=== PATIENT | female | born 1955 | race Caucasian/White ===

== ENCOUNTER → 2016-10-31 | Outpatient (CLI) | payer BC | LOC: WI 09:53 | PROVIDERS: ATTEND Specialist | DX: C50.312 Malignant neoplasm of lower-inner quadrant of left female breast (principal) | CPT/HCPCS: G0204-52 ==

== ENCOUNTER → 2017-05-04 | Outpatient (CLI) | payer BC | LOC: WI 09:15 | PROVIDERS: ATTEND Internal Medicine | DX: C50.312 Malignant neoplasm of lower-inner quadrant of left female breast (principal) | CPT/HCPCS: G0279; G0204; 77062; 77066 ==

== ENCOUNTER → 2017-07-20 | Outpatient (CLI) | payer BC ==
--- NOTE | 2017-07-20 12:49 | RADIOLOGY REPORT (SQ) ---
EXAM DESCRIPTION: TIBIA FIBULA LEFT COMPLETED DATE/TIME: 07/20/2017 11:16 am REASON FOR STUDY: PAIN LEFT LOWER LEG M25.562 PAIN IN LEFT KNEE M79.662 PAIN IN LEFT LOWER LEG COMPARISON: None. NUMBER OF VIEWS: Two views. TECHNIQUE: Two radiographic images acquired of the left tibia and fibula to include the knee and ank le in at least one projection. LIMITATIONS: None. FINDINGS: MINERALIZATION: Normal. BONES: No acute fracture or dislocation. No worrisome bone lesions. Note: The proximal tibia and fi bula are included in the knee series. SOFT TISSUES: No obvious swelling or foreign body. OTHER: No other significant finding. IMPRESSION: NEGATIVE STUDY OF THE LEFT TIBIA AND FIBULA. NO RADIOGRAPHIC EVIDENCE OF ACUTE INJURY. TECHNICAL DOCUMENTATION: JOB ID: [id number] [employer]- All Rights Reserved
--- NOTE | 2017-07-20 12:50 | RADIOLOGY REPORT (SQ) ---
EXAM DESCRIPTION: KNEE LEFT 4 VIEW COMPLETED DATE/TIME: 07/20/2017 11:16 am REASON FOR STUDY: PAIN IN LEFT KNEE M25.562 PAIN IN LEFT KNEE M79.662 PAIN IN LEFT LOWER LEG COMPARISON: None. NUMBER OF VIEWS: Four views. TECHNIQUE: AP, lateral, and both oblique radiographic images acquired of the left knee. LIMITATIONS: None. FINDINGS: MINERALIZATION: Normal. BONES: No acute fracture or dislocation. No worrisome bone lesions. JOINT: No effusion. SOFT TISSUES: No soft tissue swelling. No radio-opaque foreign body. OTHER: No other significant finding. IMPRESSION: NEGATIVE STUDY OF THE LEFT KNEE. NO RADIOGRAPHIC EVIDENCE OF ACUTE INJURY. TECHNICAL DOCUMENTATION: JOB ID: [id number] [employer]- All Rights Reserved
== END ==
LOC: RAD 10:32
PROVIDERS: ATTEND Family Medicine
DX: M25.562 Pain in left knee (principal); M79.662 Pain in left lower leg

== ENCOUNTER → 2017-11-02 | Outpatient (CLI) | payer BC ==
--- NOTE | 2017-11-02 15:27 | WOMENS IMAGING REPORT ---
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 Additional right breast and left breast compression magnification views. LIMITATIONS: None. FINDINGS: RIGHT BREAST MASSES: No suspicious masses. Oil cysts are present in the medial right breast. CALCIFICATIONS: There are benign dystrophic calcifications in areas of fat necrosis. ARCHITECTURAL DISTORTION: None. DEVELOPING DENSITY: None. ASYMMETRY: None noted. OTHER: No other significant findings. LEFT BREAST MASSES: Multiple oil cysts are present in the left breast. CALCIFICATIONS: There are benign dystrophic calcifications in areas of fat necrosis. ARCHITECTURAL DISTORTION: None. DEVELOPING DENSITY: None. ASYMMETRY: None noted. OTHER: No other significant finding. Read with the assistance of CAD: .[facility] - R2 Cenova Version 1.3 .[facility] - R2 Cenova Version 1.3 .[facility] Imaging - R2 Cenova Version 2.4 .[facility] [place] R2 Cenova Version 2.4 .[facility] - R2 [employer] Inspector Version 9.2 IMPRESSION: No mammographic evidence for malignancy bilaterally BREAST DENSITY: a. The breasts are almost entirely fatty. BIRAD: 2 Benign findings. RECOMMENDATION: RECOMMENDED FOLLOW UP: Please continue yearly bilateral screening mammography/tomosy nthesis in October 2018 SPECIFIC INTERVENTION/IMAGING/CONSULTATION RECOMMENDED:No additional intervention/ imaging/consultati on needed at this time. COMMUNICATION:Patient notified by letter COMMENT: The patient has been notified of the results by letter per SA requirements. Additional no tification policies are in place for contacting patient with suspicious or incomplete findings. Quality ID #[id number]: The [employer] recommends an annual screening mammogram for women aged 40 years or over. This facility utilizes a reminder system to ensure that all patients receive reminder letters, and/or direct phone calls for appointments. This includes reminders for routine scr eening mammograms, diagnostic mammograms, or other Breast Imaging Interventions when appropriate. Th is patient will be placed in the appropriate reminder system. The [employer] (ACR) has developed recommendations for screening MRI of the breast s in certain patient populations, to be used in conjunction with mammography. Breast MRI surveillanc e may be appropriate for women with more than 20% lifetime risk of developing breast cancer as deter mined by genetic testing, significant family history of the disease, or history of mantle radiation f or Hodgkins Disease. ACR Practice Guidelines 2008. DBT Technology DBT is a type of tomographic mammography. With conventional mammography, overlapping breast tissue ma y make lesions difficult to detect, even with good compression. DBT uses an x-ray tube that rotates a round the breast, taking images at different angles. These images are then combined to create thin sl ices of the breast that the radiologist can view as a 3D reconstruction. The [employer] unit can perform full-field digital mammograms (2D imaging); or DBT (3D imaging); or both, in a combination mode that quickly performs both the mammogram and the tomosynthesis scan while the breast is still compressed. PQRS 6045F: Fluoroscopic imaging is not utilized for breast tomosynthesis. TECHNICAL DOCUMENTATION: FINDING NUMBER: (1) ASSESSMENT: (1) JOB ID: [id number] [employer]- All Rights Reserved Reading location - IP/workstation name: [email or web address]
== END ==
LOC: WI 08:52
PROVIDERS: ATTEND Physician Assistant
DX: C50.312 Malignant neoplasm of lower-inner quadrant of left female breast (principal)
CPT/HCPCS: 77066; G0279; 77062

== ENCOUNTER 2018-01-15 08:49 | Emergency (ER) | payer BC ==
[2018-01-15] MEDS ORDERED: LIDOCAINE 1% INJ-PF (10 MG/ML) 30 ML SDV INJ ONE (09:32)
[2018-01-15] MEDS ORDERED: DIPH/PERTUSS(ACELL)/TETANUS VAC/PF 0.5 ML SYR (>=10YO) IM ONE (09:32)
--- NOTE | 2018-01-15 09:32 | ER Document Report ---
ED Medical Screen (RME) - General Chief Complaint: Thumb Injury Stated Complaint: FINGER INJURY Time Seen by Provider: 01/15/18 09:26 Mode of Arrival: Ambulatory Information source: Patient Notes: 62-year-old female presents with laceration left hand thumb with a knife tetanus is not up-to-date I have greeted and performed a rapid initial assessment of this patient. A comprehensive ED assessment and evaluation of the patient, analysis of test results and completion of the medical decision making process will be conducted by additional ED providers. PHYSICAL EXAMINATION: GENERAL: Well-appearing, well-nourished and in no acute distress. HEAD: Atraumatic, normocephalic. EYES: Pupils equal round extraocular movements intact, conjunctiva are normal. ENT: Nares patent NECK: Normal range of motion LUNGS: No respiratory distress Musculoskeletal: Normal range of motion NEUROLOGICAL: Normal speech, normal gait. PSYCH: Normal mood, normal affect. SKIN: 3 cm laceration of the pad of the left hand thumb, there is venous oozing noted TRAVEL OUTSIDE OF THE [place] IN LAST 30 DAYS: No - Related Data Allergies/Adverse Reactions: aspirin Allergy (Verified 01/15/18 08:54) Penicillins Allergy (Verified 01/15/18 08:54) Past Medical History Renal/ Medical History: Denies: Hx Peritoneal Dialysis Physical Exam - Vital signs Vitals: Temp Pulse Resp BP Pulse Ox 97.6 F 78 18 141/90 H 97 01/15/18 08:57 01/15/18 08:57 01/15/18 08:57 01/15/18 08:57 01/15/18 08:57 Course - Vital Signs Vital signs: Temp Pulse Resp BP Pulse Ox 97.6 F 78 18 141/90 H 97 01/15/18 08:57 01/15/18 08:57 01/15/18 08:57 01/15/18 08:57 01/15/18 08:57 Doctor's Discharge - Discharge Referrals: MAGUE TAYLOR PA-C [Primary Care Provider] - Follow up as needed
--- NOTE | 2018-01-15 10:39 | ER Document Report ---
ED General - General Chief Complaint: Thumb Injury Stated Complaint: FINGER INJURY Time Seen by Provider: 01/15/18 09:26 Mode of Arrival: Ambulatory TRAVEL OUTSIDE OF THE [place] IN LAST 30 DAYS: No - HPI Notes: Patient is a 62-year-old female with a history of hypertension who presents to the ED complaining of a laceration to the distal anterior left thumb by a knife prior to arrival. Patient states that she is still able to move the thumb without any difficulties. Her last tetanus was 10 years ago. The pain does not radiate. She has no other concerns or complaints at this time. No other significant past medical history. Denies any headache, fever, URI, sore throat , chest pain, palpitations, syncope, cough, shortness of breath, wheeze, dyspnea , abdominal pain, nausea/vomiting/diarrhea, urinary retention, dysuria, hematuria, numbness/tingling, muscle paralysis/weakness, or rash. - Related Data Allergies/Adverse Reactions: aspirin Allergy (Verified 01/15/18 08:54) Penicillins Allergy (Verified 01/15/18 08:54) Past Medical History - General Information source: Patient - Social History Smoking Status: Unknown if Ever Smoked Family History: Reviewed & Not Pertinent Patient has suicidal ideation: No Patient has homicidal ideation: No Renal/ Medical History: Denies: Hx Peritoneal Dialysis Review of Systems - Review of Systems -: Yes All other systems reviewed and negative Physical Exam - Vital signs Vitals: Temp Pulse Resp BP Pulse Ox 97.6 F 78 18 141/90 H 97 01/15/18 08:57 01/15/18 08:57 01/15/18 08:57 01/15/18 08:57 01/15/18 08:57 - Notes Notes: PHYSICAL EXAMINATION: GENERAL: Well-appearing, well-nourished and in no acute distress. LUNGS: Breath sounds clear to auscultation bilaterally and equal. No wheezes rales or rhonchi. HEART: Regular rate and rhythm without murmurs, rubs, gallops. Musculoskeletal: Left thumb: + 2.5-3cm superficial linear laceration noted anterodistal. FROM to passive/active. Strength 5+/5. N/V intact distal. No bony tenderness noted. Extremities: No cyanosis, clubbing, or edema b/l. Peripheral pulses 2+. Capillary refill less than 3 seconds. NEUROLOGICAL: Normal speech, normal gait. Normal sensory, motor exams PSYCH: Normal mood, normal affect. SKIN: see above. Warm, Dry, normal turgor, no rashes or lesions noted. Course - Re-evaluation Re-evalutation: 01/15/18 10:53 Patient is an afebrile, well-hydrated, 62-year-old female who presents to the ED with a laceration to her left anterior distal thumb. Vitals are acceptable. PE is otherwise unremarkable for any neurovascular compromise, obvious tendon/ ligament rupture, obvious fracture/dislocation, retained foreign body. Wound was thoroughly irrigated and cleansed. Wound edges were approximated appropriately utilizing 6 simple interrupted sutures. Patient tolerated procedure well without any complications. No other labs or imaging warranted at this time based on H&P. Wound dressing was placed and wound instructions reviewed. I will send her home with a prescription for Bactrim to take as directed as prophylaxis. Tetanus was updated today. Recheck with your PCM in 2 -3 days. Sutures will need removed in about 10 days. Return to the ED with any worsening/concerning symptoms otherwise as reviewed discharge. Patient is in agreement. - Vital Signs Vital signs: Temp Pulse Resp BP Pulse Ox 97.6 F 78 18 141/90 H 97 01/15/18 08:57 01/15/18 08:57 01/15/18 08:57 01/15/18 08:57 01/15/18 08:57 Procedures - Laceration/Wound Repair Left Thumb Time completed: 10:50 Wound length (cm): 3 Wound's Depth, Shape: Superficial, Linear Laceration pre-procedure: Sterile PPE donned, Sterile drapes applied, Other - chlorhexadine/saline Anesthetic type: 1% Lidocaine Volume Anesthetic (mLs): 10 Wound explored: Clean, No foreign body removed Irrigated w/ Saline (mLs): 100 Wound Debrided: none Wound Repaired With: Sutures Suture Size/Type: 5:0, Ethilon Number of Sutures: 6 Layer Closure?: No Post-procedure wound care: Sterile dressing applied Post-procedure NV exam normal: Yes Complications: No Discharge - Discharge Clinical Impression: Laceration of thumb Qualifiers: Encounter type: initial encounter Damage to nail status: without damage Foreign body presence: without foreign body Laterality: left Qualified Code(s): S61.012A - Laceration without foreign body of left thumb without damage to nail , initial encounter Condition: Stable Disposition: HOME, SELF-CARE Instructions: Antibiotic Ointment Protection ([facility]), Laceration Care ([facility]), Prophylactic Antibiotic ([facility]), Soap Cleansing ([facility]), Tetanus Immunization Given ([facility]) Additional Instructions: Do not shower or bathe for 24 hours. After 24 hours you may shower but no submersion of the wound under water. Keep the original dressing on the wound for 24 hours unless the drainage soaks through. Change the dressing daily thereafter and keep the knots of the suture material clean from any dried discharge. You may leave the wound open to the air once there is no more discharge. Return to the ED and/or your PCM in 2-3 days for a recheck. Monitor for any signs of worsening pain or redness, purulent drainage, streaks, and/or fever. Return to the ED if noticing any of the above symptoms or as needed. Take medications as directed. Your sutures will need to be removed in 10 days. Prescriptions: Sulfamethoxazole/Trimethoprim [Bactrim Ds Tablet] 1 each PO BID #10 tablet Forms: Elevated Blood Pressure Referrals: MAGUE TAYLOR PA-C [ALLIED HEALTH PROFESSIONAL] - 01/17/18 [facility] [Provider Group] - Follow up as needed
[2018-01-15 11:05] VITALS: BP 142/86
== END 2018-01-15 11:05 | disposition home or self-care (01) ==
LOC: ER 08:49
PROC: 0HQGXZZ Repair Left Hand Skin, External Approach (ICD-10-PCS; principal; 2018-01-15)
DX: S61.012A Laceration without foreign body of left thumb without damage to nail, initial encounter (principal); I10 Essential (primary) hypertension; W26.0XXA Contact with knife, initial encounter
CPT/HCPCS: 99283; 12002; J3490

== ENCOUNTER → 2018-05-21 | Outpatient (CLI) | payer MEDICARE, BC ==
--- NOTE | 2018-05-21 11:34 | WOMENS IMAGING REPORT ---
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 LIMITATIONS: None. FINDINGS: LUMBAR SPINE: The bone mineral density (BMD) measured from L1-L4 in the AP projection correlates with a T-score of -0.9, which is within normal limits as defined by the World Health Organization. This is stable comp ared to previous study HIP: The bone mineral density (BMD) measured in the left femoral neck at the hip correlates with a T-score of -1.5, which is osteopenic as defined by the World Health Organization. This stable compared to p revious studies IMPRESSION: 1. LUMBAR SPINE: Normal 2. HIP: Osteopenic COMMENT: The World Health Organization defines low BMD as follows: T-score: Normal: Greater than -1.0 Osteopenia: Between -1.0 and -2.5 Osteoporosis: Less than -2.5 without fractures Established osteoporosis: Less than -2.5 with fractures In general, you may wish to consider: Diagnosis Treatment Follow-up DEXA Normal BMD Prevention 2-3 years Osteopenia Prevention/Therapy 1-2 years Osteoporosis Therapy Yearly TECHNICAL DOCUMENTATION: JOB ID: [id number] [employer]- All Rights Reserved Reading location - IP/workstation name: [email or web address]
== END ==
LOC: WI 09:51
PROVIDERS: ATTEND Internal Medicine Hematology & Oncology
DX: M81.0 Age-related osteoporosis without current pathological fracture (principal); Z79.811 Long term (current) use of aromatase inhibitors
CPT/HCPCS: 77080

== ENCOUNTER → 2018-07-23 | Outpatient (CLI) | payer MEDICARE, BC ==
--- NOTE | 2018-07-23 15:37 | WOMENS IMAGING REPORT ---
EXAM DESCRIPTION: U/S THYROID/ST TIS HEAD NECK COMPLETED DATE/TIME: 07/23/2018 12:54 pm REASON FOR STUDY: R59.0 LOCALIZED ENLARGED LYMPH NODES R59.0 LOCALIZED ENLARGED LYMPH NODES COMPARISON: None. TECHNIQUE: Dynamic and static nielsen-scale images acquired of the thyroid gland. Selected additional c olor/power Doppler images recorded. All images stored to PACS. LIMITATIONS: None. FINDINGS: Patient gives a history of swelling in the right submandibular triangle. Ultrasound of th e right and left submandibular glands was performed. No cysts. No stones. No abscess. Right submandibular gland 3.3 x 1.8 cm in size. Left submandibular gland 3.3 by 1.9 cm in size. RIGHT LOBE: Right lobe thyroid 4.4 x 1.5 x 1.1 cm in size with heterogeneous echotexture and 2 x 1 cm midpole nodule. LEFT LOBE: Left lobe thyroid is 4.5 x 2 x 1.7 cm in size with heterogeneous echotexture and a 1.6 x 1 .5 cm nodule and 2 x 1.6 cm nodule. ISTHMUS: Normal size. Homogeneous echotexture. No cystic or solid masses. OTHER: No other significant finding. IMPRESSION: Unremarkable ultrasound of the right submandibular triangle Probable multinodular goiter TECHNICAL DOCUMENTATION: JOB ID: [id number]- All Rights Reserved Reading location - IP/workstation name: [email or web address]
== END ==
LOC: WI 10:40
PROVIDERS: ATTEND Family Medicine
DX: E04.1 Nontoxic single thyroid nodule (principal)
CPT/HCPCS: 76536

== ENCOUNTER → 2018-07-24 | Outpatient (CLI) | payer MEDICARE, BC ==
--- NOTE | 2018-07-24 17:18 | WOMENS IMAGING REPORT ---
EXAM DESCRIPTION: 3D DX MAMMO BILAT COMPLETED DATE/TIME: 07/24/2018 9:38 am REASON FOR STUDY: C50.312 COMPARISON: Multiple since 2008 TECHNIQUE: Standard craniocaudal and mediolateral oblique views of each breast recorded using digita l acquisition and breast tomosynthesis. Additional left breast 90 mediolateral tomosynthesis LIMITATIONS: None. FINDINGS: RIGHT BREAST MASSES: No suspicious masses. CALCIFICATIONS: No new or suspicious calcifications. ARCHITECTURAL DISTORTION: None. DEVELOPING DENSITY: None. ASYMMETRY: None noted. OTHER: Benign changes of fat necrosis in the right retroareolar region and deep central right breast. LEFT BREAST MASSES: No suspicious masses. CALCIFICATIONS: No new or suspicious calcifications. ARCHITECTURAL DISTORTION: None. DEVELOPING DENSITY: None. ASYMMETRY: None noted. OTHER: Benign changes of fat necrosis in the central retroareolar and deep lateral left breast. Read with the assistance of CAD: .[facility] - R2 Cenova Version 1.3 .[facility] Imaging - R2 Cenova Version 1.3 .[facility] Imaging - R2 Cenova Version 2.4 .[facility] [place] R2 Cenova Version 2.4 .[facility] - R2 [employer] Version 9.2 IMPRESSION: No mammographic/tomosynthesis evidence for malignancy bilaterally BREAST DENSITY: b. There are scattered areas of fibroglandular density. BIRAD: 2 Benign findings. RECOMMENDATION: RECOMMENDED FOLLOW UP: Please continue right breast screening left breast diagnostic mammograms and tomosynthesis in July 2019 SPECIFIC INTERVENTION/IMAGING/CONSULTATION RECOMMENDED:No additional intervention/ imaging/consultati on needed at this time. COMMUNICATION:The negative/benign results were communicated to the patient. COMMENT: The patient has been notified of the results by letter per SA requirements. Additional no tification policies are in place for contacting patient with suspicious or incomplete findings. Quality ID #[id number]: The [employer] recommends an annual screening mammogram for women aged 40 years or over. This facility utilizes a reminder system to ensure that all patients receive reminder letters, and/or direct phone calls for appointments. This includes reminders for routine scr eening mammograms, diagnostic mammograms, or other Breast Imaging Interventions when appropriate. Th is patient will be placed in the appropriate reminder system. The [employer] (ACR) has developed recommendations for screening MRI of the breast s in certain patient populations, to be used in conjunction with mammography. Breast MRI surveillanc e may be appropriate for women with more than 20% lifetime risk of developing breast cancer as deter mined by genetic testing, significant family history of the disease, or history of mantle radiation f or Hodgkins Disease. ACR Practice Guidelines 2008. DBT Technology DBT is a type of tomographic mammography. With conventional mammography, overlapping breast tissue ma y make lesions difficult to detect, even with good compression. DBT uses an x-ray tube that rotates a round the breast, taking images at different angles. These images are then combined to create thin sl ices of the breast that the radiologist can view as a 3D reconstruction. The [employer] unit can perform full-field digital mammograms (2D imaging); or DBT (3D imaging); or both, in a combination mode that quickly performs both the mammogram and the tomosynthesis scan while the breast is still compressed. PQRS 6045F: Fluoroscopic imaging is not utilized for breast tomosynthesis. TECHNICAL DOCUMENTATION: FINDING NUMBER: (1) ASSESSMENT: (1) JOB ID: [id number] [employer]- All Rights Reserved Reading location - IP/workstation name: [email or web address]
== END ==
LOC: WI 09:16
PROVIDERS: ATTEND Family Medicine
DX: C50.312 Malignant neoplasm of lower-inner quadrant of left female breast (principal)
CPT/HCPCS: 77066; G0279; 77062

== ENCOUNTER → 2019-01-10 | Outpatient (CLI) | payer MEDICARE, BC ==
--- NOTE | 2019-01-10 12:38 | RADIOLOGY REPORT (SQ) ---
EXAM DESCRIPTION: ELBOW RIGHT >2 VIEWS COMPLETED DATE/TIME: 01/10/2019 11:12 am REASON FOR STUDY: PAIN IN RT ELBOW E83.52 HYPERCALCEMIA M25.521 PAIN IN RIGHT ELBOW COMPARISON: None. NUMBER OF VIEWS: Three views. TECHNIQUE: AP, lateral, and oblique radiographic images acquired of the right elbow. LIMITATIONS: None. FINDINGS: MINERALIZATION: Normal. BONES: No acute fracture or dislocation. No worrisome bone lesions. JOINT: No effusion. SOFT TISSUES: No soft tissue swelling. No foreign body. OTHER: No other significant finding. IMPRESSION: NEGATIVE STUDY OF THE RIGHT ELBOW. NO RADIOGRAPHIC EVIDENCE OF ACUTE INJURY. TECHNICAL DOCUMENTATION: JOB ID: [id number] [employer]- All Rights Reserved Reading location - IP/workstation name: [email or web address]
== END ==
LOC: OD 10:40
PROVIDERS: ATTEND Family Medicine
DX: E83.52 Hypercalcemia (principal); M25.521 Pain in right elbow
CPT/HCPCS: 36415; 82306; 82330; 83970

== ENCOUNTER → 2019-03-20 | Outpatient (CLI) | payer MEDICARE, BC ==
--- NOTE | 2019-03-20 16:01 | RADIOLOGY REPORT (SQ) ---
EXAM DESCRIPTION: U/S ABDOMEN LIMITED W/O DOP COMPLETED DATE/TIME: 03/20/2019 3:46 pm REASON FOR STUDY: (R10.10)UPPER ABDOMINAL PAIN, UNSPECIFIED R10.10 UPPER ABDOMINAL PAIN, UNSPECIFIE D R11.0 NAUSEA COMPARISON: None. TECHNIQUE: Dynamic and static grayscale images acquired of the abdomen and recorded on PACS. Additio nal selected color Doppler and spectral images recorded. LIMITATIONS: None. FINDINGS: PANCREAS: No masses. Visualized pancreatic duct normal caliber. LIVER: Scattered hepatic cysts largest within the left lobe measuring 3.1 cm. No intra ductal dilati on. Normal size. Increased echogenicity. LIVER VASCULATURE: Normal directional flow of the main portal vein and hepatic veins. GALLBLADDER: Contracted. ULTRASOUND-DETECTED BRENNAN'S SIGN: Negative. INTRAHEPATIC DUCTS AND COMMON DUCT: CBD not visualized. No intrahepatic ductal dilation. INFERIOR VENA CAVA: Normal flow. AORTA: No aneurysm. RIGHT KIDNEY: Normal size measuring 9.0 cm. Normal echogenicity. No solid or suspicious masses. No h ydronephrosis. No calcifications. PERITONEAL AND RIGHT PLEURAL SPACE: No ascites or effusions. OTHER: No other significant findings. IMPRESSION: 1. Hepatic steatosis. Hepatic cysts, largest measuring 3.1 cm. 2. Contracted gallbladder likely secondary to non fasting state. TECHNICAL DOCUMENTATION: JOB ID: [id number] [employer]- All Rights Reserved Reading location - IP/workstation name: [email or web address]
== END ==
LOC: RAD 13:57
PROVIDERS: ATTEND Family Medicine
DX: K82.0 Obstruction of gallbladder (principal); K76.89 Other specified diseases of liver; K76.0 Fatty (change of) liver, not elsewhere classified; R10.10 Upper abdominal pain, unspecified; R11.0 Nausea
CPT/HCPCS: 76705

== ENCOUNTER 2019-03-26 15:49 | Emergency (ER) | payer MEDICARE, BC ==
[2019-03-26] MEDS ORDERED: ONDANSETRON HCL INJ/PF 4 MG/2 ML SDV IV ONE ×2 (16:13→16:28)
[2019-03-26] MEDS ORDERED: FAMOTIDINE INJ/PF 20 MG/2 ML SDV IV ONE (16:14)
--- NOTE | 2019-03-26 16:17 | ER Document Report ---
ED Medical Screen (RME) - General Chief Complaint: Abdominal Pain Stated Complaint: ABDOMINAL PAIN Time Seen by Provider: 03/26/19 16:13 Primary Care Provider: KARLI SHELBY MD [Primary Care Provider] - Follow up as needed Notes: Patient is a 64-year-old female with a history of acid reflux, hypertension, high cholesterol, breast cancer and fatty liver who reports to the emergency department with a chief complaint of upper abdominal pain. Patient states the abdominal pain has been present for 8 days. She did follow-up with her primary care physician Dr. Shelby who did order an abdominal ultrasound last week. She states she did follow-up with her for the results and she was concerned for a cyst on the liver. Patient reports she has a CT of the abdomen scheduled for this . Patient states she has had a lot of upper abdominal bloating. She states that food does make the pain worse. Patient states last night she ate mac & cheese which made the pain a lot worse. Patient states she is a social drinker but does not do any recreational drugs. Patient reports nausea without vomiting. TRAVEL OUTSIDE OF THE [place] IN LAST 30 DAYS: No - Related Data Allergies/Adverse Reactions: aspirin Allergy (Verified 01/15/18 08:54) Penicillins Allergy (Verified 01/15/18 08:54) Past Medical History Renal/ Medical History: Denies: Hx Peritoneal Dialysis Physical Exam - Vital signs Vitals: Temp Pulse Resp BP Pulse Ox 97.6 F 81 18 146/87 H 95 03/26/19 15:56 03/26/19 15:56 03/26/19 15:56 03/26/19 15:56 03/26/19 15:56 - Abdominal Inspection: Normal Distension: No distension Bowel sounds: Normal Tenderness: Tender - generalized upper abdominal tenderness Course - Re-evaluation Re-evalutation: 03/26/19 16:16 I have greeted and performed a rapid initial assessment of this patient. A comprehensive ED assessment and evaluation of the patient, analysis of test results and completion of the medical decision making process will be conducted by additional ED providers. - Vital Signs Vital signs: Temp Pulse Resp BP Pulse Ox 97.6 F 81 18 146/87 H 95 03/26/19 15:56 03/26/19 15:56 03/26/19 15:56 03/26/19 15:56 03/26/19 15:56 Doctor's Discharge - Discharge Referrals: KARLI SHELBY MD [Primary Care Provider] - Follow up as needed
[2019-03-26] MEDS ORDERED: MORPHINE SULFATE 10 MG/ML INJ IV ONE ×2 (16:28→19:40)
[2019-03-26] MEDS ORDERED: NORMAL SALINE 1000 ML 1,000 ML IV ONE (16:28)
[2019-03-26 17:11] LABS: ABSOLUTE BASOPHILS # (AUTO) 0.1 10^3/uL (0.0-0.2); ABSOLUTE MONOCYTES (AUTO) 0.6 10^3/uL (0.1-1.4); ABSOLUTE NEUT (AUTO) 7.8 10^3/uL (1.7-8.2); BASOPHILS % (AUTO) 0.7 % (0-2); EOSINOPHILS % (AUTO) 0.4 % (0-6); HEMATOCRIT 39.5 % (36.0-47.0); HEMOGLOBIN 13.4 g/dL (12.0-15.5); MEAN CORPUSCULAR HEMOGLOBIN 29.6 pg (27.0-33.4); MEAN CORPUSCULAR HGB CONC 33.9 g/dL (32.0-36.0); MEAN CORPUSCULAR VOLUME 88 fl (80-97); MONOCYTES % (AUTO) 6.5 % (3-13); PLATELET COUNT 370 10^3/uL (150-450); RED BLOOD COUNT 4.51 10^6/uL (3.72-5.28); RED CELL DISTRIBUTION WIDTH 13.8 % (11.5-14.0); SEGMENTED NEUTROPHILS % (AUTO) 82.4 % (42-78); TOTAL CELLS COUNTED % (AUTO) 100 %; WHITE BLOOD COUNT 9.5 10^3/uL (4.0-10.5)
[2019-03-26 17:25] LABS: ALBUMIN 4.3 g/dL (3.5-5.0); ALKALINE PHOSPHATASE 335 U/L (38-126); ANION GAP 14 (5-19); ASPARTATE AMINO TRANSFERASE 537 U/L (14-36); BILIRUBIN,DIRECT 6.3 mg/dL (0.0-0.4); BILIRUBIN,TOTAL 7.4 mg/dL (0.2-1.3); BLOOD UREA NITROGEN 11 mg/dL (7-20); CALCIUM 11.3 mg/dL (8.4-10.2); CARBON DIOXIDE 26 mmol/L (22-30); CHLORIDE 97 mmol/L (98-107); GLUCOSE 120 mg/dL (75-110); POTASSIUM 3.7 mmol/L (3.6-5.0); TOTAL PROTEIN 7.3 g/dL (6.3-8.2)
--- NOTE | 2019-03-26 18:54 | RADIOLOGY REPORT (SQ) ---
EXAM DESCRIPTION: CT ABD/PELVIS WITH IV ONLY COMPLETED DATE/TIME: 03/26/2019 6:12 pm REASON FOR STUDY: bilat uq pain/hx breast ca COMPARISON: None. TECHNIQUE: CT scan of the abdomen and pelvis performed using helical scanning technique with dynamic intravenous contrast injection. No oral contrast. Images reviewed with lung, soft tissue, and bone windows. Reconstructed coronal and sagittal MPR images reviewed. Delayed images for evaluation of the urinary system also acquired. All images stored on PACS. All CT scanners at this facility use dose modulation, iterative reconstruction, and/or weight based d osing when appropriate to reduce radiation dose to as low as reasonably achievable (ALARA). [facility]: Dose Right [facility]: CareDose [facility]: Dose Right [facility]: Teradose 4D [facility]: ULTRA Testing CONTRAST TYPE AND DOSE: contrast/concentration: Isovue 350.00 mg/ml; Total Contrast Delivered: 100.0 ml; Total Saline Delivered: 72.0 ml RENAL FUNCTION: BUN 11 creatinine 0.7 RADIATION DOSE: CT Rad equipment meets quality standard of care and radiation dose reduction techniq ues were employed. CTDIvol: 15.6 - 18.2 mGy. DLP: 1872 mGy-cm.. LIMITATIONS: None. FINDINGS: LOWER CHEST: No significant findings. No nodules or infiltrates. LIVER: The liver is diffusely hypoattenuating. A couple of cysts are present in the right lobe. SPLEEN: Normal size. No focal lesions. PANCREAS: There is a 15.7 by 18.9 mm low-density mass in the head of the pancreas adjacent to the SMA . GALLBLADDER: No identified stones by CT criteria. No inflammatory changes to suggest cholecystitis. ADRENAL GLANDS: No significant masses or asymmetry. RIGHT KIDNEY AND URETER: No solid masses. No significant calcifications. No hydronephrosis or hyd roureter. LEFT KIDNEY AND URETER: No solid masses. No significant calcifications. No hydronephrosis or hydr oureter. AORTA AND VESSELS: No aneurysm. No dissection. Renal arteries, SMA, celiac without stenosis. RETROPERITONEUM: No retroperitoneal adenopathy, hemorrhage or masses. BOWEL AND PERITONEAL CAVITY: Diverticulosis with no associated inflammatory changes. APPENDIX: Not identified. PELVIS: No mass. No free fluid. Normal bladder. ABDOMINAL WALL: No masses. No hernias. BONES: No significant or acute findings. OTHER: No other significant finding. IMPRESSION: 1. 15.7 x 18.9 mm mass in the head of the pancreas. 2. Hepatic steatosis. 3. Diverticulosis coli. TECHNICAL DOCUMENTATION: JOB ID: [id number] Quality ID # [id number]: Final reports with documentation of one or more dose reduction techniques (e.g., Au tomated exposure control, adjustment of the mA and/or kV according to patient size, use of iterative reconstruction technique) 2010 [employer]- All Rights Reserved Reading location - IP/workstation name: [email or web address]
--- NOTE | 2019-03-26 19:40 | ER Document Report ---
ED General - General Chief Complaint: Abdominal Pain Stated Complaint: ABDOMINAL PAIN Time Seen by Provider: 03/26/19 16:13 Primary Care Provider: KARLI SHELBY MD [Primary Care Provider] - Follow up as needed Mode of Arrival: Ambulatory Information source: Patient TRAVEL OUTSIDE OF THE [place] IN LAST 30 DAYS: No - HPI Notes: Patient presents with bilateral upper quadrant abdominal pain and epigastric pain. It is severe. It radiates to her back. Nothing makes it better or worse. It is been constant for several days now. She is also had nausea and vomiting. No changes of stool or urine. She states in the past she had breast cancer with a lumpectomy approximately 4 years ago. Since that time she has been on oral chemotherapy drugs. No further problems. Pain is moderate to severe. - Related Data Allergies/Adverse Reactions: aspirin Allergy (Verified 01/15/18 08:54) Penicillins Allergy (Verified 01/15/18 08:54) Past Medical History - General Information source: Patient - Social History Smoking Status: Never Smoker Frequency of alcohol use: None Drug Abuse: None Family History: Reviewed & Not Pertinent Patient has suicidal ideation: No Patient has homicidal ideation: No Renal/ Medical History: Denies: Hx Peritoneal Dialysis Review of Systems - Review of Systems Constitutional: Malaise. denies: Chills, Fever Cardiovascular: denies: Chest pain, Dyspnea Respiratory: denies: Cough, Short of breath -: Yes All other systems reviewed and negative Physical Exam - Vital signs Vitals: Temp Pulse Resp BP Pulse Ox 97.6 F 81 18 146/87 H 95 03/26/19 15:56 03/26/19 15:56 03/26/19 15:56 03/26/19 15:56 03/26/19 15:56 Interpretation: Normal - General General appearance: Appears well, Alert - HEENT Head: Normocephalic, Atraumatic Eyes: Normal Pupils: PERRL - Respiratory Respiratory status: No respiratory distress Chest status: Nontender Breath sounds: Normal Chest palpation: Normal - Cardiovascular Rhythm: Regular Heart sounds: Normal auscultation Murmur: No - Abdominal Inspection: Normal Distension: No distension Bowel sounds: Normal Tenderness: Tender - Patient is tender to palpation in the epigastric area. There is no guarding or rebound. Organomegaly: No organomegaly - Back Back: Normal, Nontender - Extremities General upper extremity: Normal inspection, Nontender, Normal color, Normal ROM, Normal temperature General lower extremity: Normal inspection, Nontender, Normal color, Normal ROM, Normal temperature, Normal weight bearing. No: Zaire's sign - Neurological Neuro grossly intact: Yes Cognition: Normal Orientation: AAOx4 Ramy Coma Scale Eye Opening: Spontaneous Ramy Coma Scale Verbal: Oriented Ramy Coma Scale Motor: Obeys Commands Avera Coma Scale Total: 15 Speech: Normal Motor strength normal: LUE, RUE, LLE, RLE Sensory: Normal - Psychological Associated symptoms: Normal affect, Normal mood - Skin Skin Temperature: Warm Skin Moisture: Dry Skin Color: Jaundiced Course - Re-evaluation Re-evalutation: 03/26/19 19:39 I reassessed the patient. She still has abdominal tenderness. Vital signs are stable though. Patient was updated about the pancreatic mass and the need for transfer. She is in agreement. - Vital Signs Vital signs: Temp Pulse Resp BP Pulse Ox 97.8 F 79 16 150/78 H 98 03/26/19 19:36 03/26/19 19:36 03/26/19 19:36 03/26/19 19:36 03/26/19 19:36 - Laboratory Result Diagrams: 03/26/19 16:55 03/26/19 16:55 Laboratory results interpreted by me: 03/26/19 03/26/19 16:55 16:55 Seg Neutrophils % 82.4 H Lymphocytes % 10.0 L Chloride 97 L Glucose 120 H Calcium 11.3 H Total Bilirubin 7.4 H Direct Bilirubin 6.3 H AST 537 H Alkaline Phosphatase 335 H Lipase 18637.8 H 03/26/19 20:08 Laboratory 03/26/19 03/26/19 03/26/19 16:55 16:55 16:55 WBC 9.5 RBC 4.51 Hgb 13.4 Hct 39.5 MCV 88 MCH 29.6 MCHC 33.9 RDW 13.8 Plt Count 370 Seg Neutrophils % 82.4 H Lymphocytes % 10.0 L Monocytes % 6.5 Eosinophils % 0.4 Basophils % 0.7 Absolute Neutrophils 7.8 Absolute Lymphocytes 1.0 Absolute Monocytes 0.6 Absolute Eosinophils 0.0 Absolute Basophils 0.1 Sodium 137.0 Potassium 3.7 Chloride 97 L Carbon Dioxide 26 Anion Gap 14 BUN 11 Creatinine 0.78 Est GFR ( Amer) > 60 Est GFR (Non-Af Amer) > 60 Glucose 120 H Calcium 11.3 H Total Bilirubin 7.4 H Direct Bilirubin 6.3 H Neonat Total Bilirubin Not Reportable Neonat Direct Bilirubin Not Reportable Neonat Indirect Bili Not Reportable AST 537 H ALT 761 Alkaline Phosphatase 335 H Troponin I < 0.012 Total Protein 7.3 Albumin 4.3 Lipase 08611.8 H - Diagnostic Test Radiology reviewed: Image reviewed, Reports reviewed Radiology results interpreted by me: 03/26/19 20:08 Abdomen/Pelvis CT 03/26/19 16:28 IMPRESSION: 1. 15.7 x 18.9 mm mass in the head of the pancreas. 2. Hepatic steatosis. 3. Diverticulosis coli. Discharge - Discharge Clinical Impression: Pancreatic mass, Hyperbilirubinemia Pancreatitis Qualifiers: Chronicity: acute Pancreatitis type: other Acute pancreatitis complication: no infection or necrosis Qualified Code(s): K85.80 - Other acute pancreatitis without necrosis or infection Condition: Serious Disposition: [facility] Referrals: KARLI SHELBY MD [Primary Care Provider] - Follow up as needed
--- NOTE | 2019-03-26 19:57 | EKG REPORT ---
SEVERITY:- BORDERLINE ECG - SINUS RHYTHM LVH BY VOLTAGE : Confirmed by: Lucia Kraft MD 26-Mar-2019 19:56:17
[2019-03-26 22:04] LABS: APPEARANCE,URINE CLEAR; BILIRUBIN,URINE SMALL (NEGATIVE); COLOR,URINE AMBER; GLUCOSE, URINE NEGATIVE (NEGATIVE); KETONES,URINE TRACE mg/dL (NEGATIVE); LEUKOCYTE ESTERASE,URINE LARGE (NEGATIVE); NITRITE,URINE NEGATIVE (NEGATIVE); PROTEIN,URINE NEGATIVE (NEGATIVE); URINE SPECIFIC GRAVITY > 1.060
--- NOTE | 2019-03-27 00:19 | ER Document Report ---
Doctor's Note Notes: 03/27/19 00:19 Patient seen and evaluated. She is alert and mentating appropriately. She is complaining of some nausea and EMS states that they will treat that in route. Patient has not vomited recently. She is stable for transfer.
[2019-03-27 00:21] VITALS: BP 142/87
== END 2019-03-27 00:22 | disposition short-term general hospital (02) ==
LOC: ER 15:49
DX: K86.9 Disease of pancreas, unspecified (principal); K85.90 Acute pancreatitis without necrosis or infection, unspecified; K57.30 Diverticulosis of large intestine without perforation or abscess without bleeding; K76.0 Fatty (change of) liver, not elsewhere classified; R10.11 Right upper quadrant pain; R10.12 Left upper quadrant pain; R10.13 Epigastric pain; R10.816 Epigastric abdominal tenderness; R11.2 Nausea with vomiting, unspecified; R53.81 Other malaise; C50.919 Malignant neoplasm of unspecified site of unspecified female breast; Z79.899 Other long term (current) drug therapy; Z88.8 Allergy status to other drugs, medicaments and biological substances; Z88.0 Allergy status to penicillin
CPT/HCPCS: 93005; 36415; 83690; 85025; 80053; 81001; 84484; 74177; 93010; J2270; J2405; J7030; 96361; 96374; 96375; 96376; 99284

== ENCOUNTER 2019-04-07 09:12 | Emergency (ER) | payer MEDICARE, BC ==
--- NOTE | 2019-04-07 09:40 | ER Document Report ---
ED Medical Screen (RME) - General Chief Complaint: Abdominal Pain Stated Complaint: ABDOMINAL PAIN Time Seen by Provider: 04/07/19 09:32 Primary Care Provider: KARLI SHELBY MD [Primary Care Provider] - Follow up as needed Notes: Patient is a 64-year-old female with a history of high cholesterol, breast cancer, hypertension and pancreatitis who presents to the emergency department with a chief complaint of right side pain. Patient states she woke up around 2 AM with a sharp pain to her right side. Patient states this is worse when she takes a deep breath. Patient reports that is intermittent. Patient reports c hills. Patient states she did have pancreatitis 2 weeks ago and had a stent placed in the common bile duct due to blockage of a stone. Patient reports she is being followed by a doctor at providing it. Patient also reports having a cyst and inflammation to the pancreas. Patient states she did take 1000 mg of Tylenol around 5 AM without relief. TRAVEL OUTSIDE OF THE [place] IN LAST 30 DAYS: No - Related Data Allergies/Adverse Reactions: aspirin Allergy (Verified 04/07/19 09:13) Penicillins Allergy (Verified 04/07/19 09:13) Past Medical History Renal/ Medical History: Denies: Hx Peritoneal Dialysis Physical Exam - Vital signs Vitals: Temp Pulse Resp BP Pulse Ox 97.6 F 102 H 15 103/65 95 04/07/19 09:31 04/07/19 09:31 04/07/19 09:31 04/07/19 09:31 04/07/19 09:31 - Abdominal Inspection: Normal Distension: No distension Bowel sounds: Normal Tenderness: Nontender Organomegaly: No organomegaly - Back Back: Normal Notes: No CVA tenderness Course - Re-evaluation Re-evalutation: 04/07/19 09:40 I have greeted and performed a rapid initial assessment of this patient. A comprehensive ED assessment and evaluation of the patient, analysis of test results and completion of the medical decision making process will be conducted by additional ED providers. - Vital Signs Vital signs: Temp Pulse Resp BP Pulse Ox 97.6 F 102 H 15 103/65 95 04/07/19 09:31 04/07/19 09:31 04/07/19 09:31 04/07/19 09:31 04/07/19 09:31 Doctor's Discharge - Discharge Referrals: KARLI SHELBY MD [Primary Care Provider] - Follow up as needed
[2019-04-07 10:09] LABS: ABSOLUTE BASOPHILS # (AUTO) 0.1 10^3/uL (0.0-0.2); ABSOLUTE EOSINOPHILS # (AUTO) 0.1 10^3/uL (0.0-0.6); ABSOLUTE LYMPHOCYTES (AUTO) 1.3 10^3/uL (0.5-4.7); ABSOLUTE MONOCYTES (AUTO) 1.5 10^3/uL (0.1-1.4); ABSOLUTE NEUT (AUTO) 8.5 10^3/uL (1.7-8.2); BASOPHILS % (AUTO) 0.7 % (0-2); EOSINOPHILS % (AUTO) 0.9 % (0-6); HEMATOCRIT 38.5 % (36.0-47.0); HEMOGLOBIN 12.9 g/dL (12.0-15.5); LYMPHOCYTES % (AUTO) 11.3 % (13-45); MEAN CORPUSCULAR HEMOGLOBIN 29.4 pg (27.0-33.4); MEAN CORPUSCULAR HGB CONC 33.6 g/dL (32.0-36.0); MEAN CORPUSCULAR VOLUME 87 fl (80-97); MONOCYTES % (AUTO) 12.9 % (3-13); PLATELET COUNT 480 10^3/uL (150-450); RED BLOOD COUNT 4.41 10^6/uL (3.72-5.28); RED CELL DISTRIBUTION WIDTH 13.7 % (11.5-14.0); SEGMENTED NEUTROPHILS % (AUTO) 74.2 % (42-78); TOTAL CELLS COUNTED % (AUTO) 100 %; WHITE BLOOD COUNT 11.5 10^3/uL (4.0-10.5)
[2019-04-07 10:29] LABS: ALBUMIN 4.3 g/dL (3.5-5.0); ALKALINE PHOSPHATASE 341 U/L (38-126); ANION GAP 15 (5-19); ASPARTATE AMINO TRANSFERASE 120 U/L (14-36); BILIRUBIN,DIRECT 1.3 mg/dL (0.0-0.4); BLOOD UREA NITROGEN 10 mg/dL (7-20); CALCIUM 10.9 mg/dL (8.4-10.2); CARBON DIOXIDE 26 mmol/L (22-30); CHLORIDE 99 mmol/L (98-107); GLUCOSE 134 mg/dL (75-110); POTASSIUM 4.4 mmol/L (3.6-5.0); TOTAL PROTEIN 7.3 g/dL (6.3-8.2)
[2019-04-07] MEDS ORDERED: NORMAL SALINE 1000 ML 1,000 ML IV ONE ×3 (10:47→15:09)
--- NOTE | 2019-04-07 10:47 | ER Document Report ---
ED General - General Chief Complaint: Abdominal Pain Stated Complaint: ABDOMINAL PAIN Time Seen by Provider: 04/07/19 09:32 Primary Care Provider: KARLI SHELBY MD [Primary Care Provider] - Follow up as needed Notes: Patient is a 64-year-old female who presents to the emergency department with a chief complaint of right lateral abdominal pain. She states that her symptoms started yesterday. She states that she felt a little nauseous, but denies any diarrhea or vomiting. Denies any constipation. She was recently released from [facility] and had a common bile duct stent placed. She also has a cyst on her pancreas, which she is being followed by Dr. Noble, one of the oncologist at [facility]. She is scheduled for an MRI on Monday. TRAVEL OUTSIDE OF THE [place] IN LAST 30 DAYS: No - Related Data Allergies/Adverse Reactions: aspirin Allergy (Verified 04/07/19 09:13) Penicillins Allergy (Verified 04/07/19 09:13) Past Medical History - Social History Smoking Status: Never Smoker Chew tobacco use (# tins/day): No Frequency of alcohol use: Occasional Drug Abuse: None Family History: Reviewed & Not Pertinent Patient has suicidal ideation: No Patient has homicidal ideation: No - Past Medical History Cardiac Medical History: Reports: Hx Hypercholesterolemia, Hx Hypertension Renal/ Medical History: Denies: Hx Peritoneal Dialysis Past Surgical History: Reports: Hx Breast Surgery - left lumpectomy Review of Systems - Review of Systems Notes: REVIEW OF SYSTEMS: CONSTITUTIONAL : Denies recent illness. Denies recent unintentional weight loss. Denies fever, chills, or sweats. EENT: Denies eye, ear, throat, or mouth pain, discharge, or symptoms. Denies nasal or sinus congestion. CARDIOVASCULAR: Denies chest pain. RESPIRATORY: Denies shortness of breath, cough, congestion, difficulty breathing, or wheezing. GASTROINTESTINAL: See HPI. GENITOURINARY: Denies difficulty urinating, burning, blood in urine, urgency or frequency. MUSCULOSKELETAL: Denies neck and back pain. Denies joint pain or swelling. SKIN: Denies rash, itchiness, or lesions HEMATOLOGIC : Denies easy bruising or bleeding. LYMPHATIC: Denies swollen, painful, enlarged glands. NEUROLOGICAL: Denies no numbness or tingling denies weakness. Denies headache. Denies altered mental status. Denies alteration in speech. PSYCHIATRIC: Denies stress, anxiety, alteration in sleep patterns, or depression. All other systems reviewed and negative. Physical Exam - Vital signs Vitals: Temp Pulse Resp BP Pulse Ox 97.6 F 102 H 15 103/65 95 04/07/19 09:31 04/07/19 09:31 04/07/19 09:31 04/07/19 09:31 04/07/19 09:31 - Notes Notes: PHYSICAL EXAMINATION: GENERAL: Appears well, healthy, well-nourished, no acute distress. HEAD: Normocephalic, atraumatic. EYES: PERRL, conjunctiva normal, all extraocular movements intact, sclera nonicteric ENT: Moist mucous membranes. NECK: Supple, no noticeable swelling, redness, rash. Normal range of motion. LUNGS: Equal breath sounds bilaterally and clear to auscultation. No wheezes rales or rhonchi. CARDIOVASCULAR: S1-S2, regular rate, regular rhythm. Radial pulses 2+, normal. ABDOMEN: Normoactive bowel sounds. Soft, tender right lateral abdomen, mild guarding, no rebound tenderness, and no masses palpated. EXTREMITIES: Normal strength and range of motion, no pitting or edema. No cyanosis. NEUROLOGICAL: Moves all extremities upon command. Strength 5/5 in all extremities. PSYCH: Normal mood, normal affect. SKIN: Warm, dry. No rash, lesions, ulcerations noted. Normal skin turgor. Course - Re-evaluation Re-evalutation: 04/07/19 12:42 The patient has a slight leukocytosis of 11,500. Chemistry show an improvement from her previous visit on March 26. Her total bilirubin is now 2 and her direct bilirubin is now 1.3. AST is 120 and alkaline phosphatase is 341. Her lipase is 914.5. She showed me her previous labs done on Monday by her primary care provider and at that time her lipase was in the 400s. Her urine shows a small amount of leukocytes and a white blood cell count of 9. She does have protein in the urine, the protein is being corrected with IV fluids. CT is stable and shows that her stent is in place. No other new findings. I called [facility] and awaiting callback from their oncologist. 04/07/19 12:[address] Sanchez, the GI physician at [facility]. He would like the patient to be admitted at [facility] for pancreatitis due to her lipase levels rising. I will await a callback from the hospitalist or the urgical oncologist physician. One of them will be admitting the patient. 04/07/19 13:28 I spoke with [facility], [place], operated by [facility] and Dr. Dumont will be admitting the patient. 04/07/19 15:11 Patient is refusing the MRI this time. She [place] [facility] 04/07/19 15:27 Transport is at bedside. I have evaluated the patient and she is stable for transfer. - Vital Signs Vital signs: Temp Pulse Resp BP Pulse Ox 98.2 F 83 16 131/74 H 97 04/07/19 15:05 04/07/19 15:05 04/07/19 15:05 04/07/19 15:05 04/07/19 15:05 - Laboratory Result Diagrams: 04/07/19 09:45 04/07/19 09:45 Laboratory results interpreted by me: 04/07/19 04/07/19 04/07/19 09:45 09:45 11:00 WBC 11.5 H Plt Count 480 H Lymph % (Auto) 11.3 L Absolute Neuts (auto) 8.5 H Absolute Monos (auto) 1.5 H Est GFR (MDRD) Non-Af 55 L Glucose 134 H Calcium 10.9 H Total Bilirubin 2.0 H Direct Bilirubin 1.3 H AST 120 H Alkaline Phosphatase 341 H Lipase 914.5 H Urine Protein 30 H Urine Ketones TRACE H Urine Blood SMALL H Ur Leukocyte Esterase SMALL H Discharge - Discharge Clinical Impression: Pancreatitis Qualifiers: Chronicity: acute Pancreatitis type: unspecified pancreatitis type Acute pancreatitis complication: unspecified Qualified Code(s): K85.90 - Acute pancreatitis without necrosis or infection, unspecified Abdominal pain Qualifiers: Abdominal location: right upper quadrant Qualified Code(s): R10.11 - Right upper quadrant pain Condition: Stable Disposition: [facility]cludes [facility] Referrals: KARLI SHELYB MD [Primary Care Provider] - Follow up as needed
[2019-04-07] MEDS ORDERED: MORPHINE SULFATE 10 MG/ML INJ IV ONE ×3 (10:48→15:23)
[2019-04-07 11:44] LABS: AMORPHOUS SEDIMENT,URINE TRACE /HPF; APPEARANCE,URINE SLIGHTLY-CLOUDY; BILIRUBIN,URINE NEGATIVE (NEGATIVE); COLOR,URINE AMBER; GLUCOSE, URINE NEGATIVE (NEGATIVE); KETONES,URINE TRACE mg/dL (NEGATIVE); LEUKOCYTE ESTERASE,URINE SMALL (NEGATIVE); NITRITE,URINE NEGATIVE (NEGATIVE); PROTEIN,URINE 30 mg/dL (NEGATIVE); URINE SPECIFIC GRAVITY 1.013; UROBILINOGEN,URINE NEGATIVE mg/dL (<2.0)
--- NOTE | 2019-04-07 12:11 | RADIOLOGY REPORT (SQ) ---
EXAM DESCRIPTION: CT ABD/PELVIS WITH IV ONLY COMPLETED DATE/TIME: 04/07/2019 11:40 am REASON FOR STUDY: abd pain COMPARISON: 03/26/2019 TECHNIQUE: CT scan of the abdomen and pelvis performed using helical scanning technique with dynamic intravenous contrast injection. No oral contrast. Images reviewed with lung, soft tissue, and bone windows. Reconstructed coronal and sagittal MPR images reviewed. Delayed images for evaluation of the urinary system also acquired. All images stored on PACS. All CT scanners at this facility use dose modulation, iterative reconstruction, and/or weight based d osing when appropriate to reduce radiation dose to as low as reasonably achievable (ALARA). [facility]: Dose Right [facility]: CareDose [facility]: Dose Right [facility]: Teradose 4D [facility]: Blendagram CONTRAST TYPE AND DOSE: contrast/concentration: Isovue 350.00 mg/ml; Total Contrast Delivered: 100.0 ml; Total Saline Delivered: 72.0 ml RENAL FUNCTION: GFR > 60. RADIATION DOSE: CT Rad equipment meets quality standard of care and radiation dose reduction techniq ues were employed. CTDIvol: 13.4 - 17.3 mGy. DLP: 1858 mGy-cm.. LIMITATIONS: None. FINDINGS: LOWER CHEST: No significant findings. No nodules or infiltrates. LIVER: Small cysts. Largest in the right lobe measuring just over 4 cm. Stable appearance. No deve loping lesions. SPLEEN: Normal size. No focal lesions. PANCREAS: No change in circumscribed 1 cm cyst in the pancreatic head. No active inflammatory change s. No duct dilatation. GALLBLADDER: Contracted appearance. Common duct biliary stent in place. Minimal associated pneumobi mallika including mild gas in the gallbladder. ADRENAL GLANDS: No significant masses or asymmetry. RIGHT KIDNEY AND URETER: No solid masses. No significant calcification. No hydronephrosis or hydroure ter. LEFT KIDNEY AND URETER: No solid masses. No significant calcification. No hydronephrosis or hydrouret er. AORTA AND VESSELS: No aneurysm. No dissection. Renal arteries, SMA, celiac without stenosis. RETROPERITONEUM: No retroperitoneal adenopathy, hemorrhage or masses. BOWEL AND PERITONEAL CAVITY: Distal colonic diverticulosis without active diverticulitis. No bowel o bstruction or ascites or abnormal gas. APPENDIX: Normal. PELVIS: No mass. No free fluid. Normal bladder. ABDOMINAL WALL: No masses. No hernias. BONES: No significant or acute findings. OTHER: No other significant finding. IMPRESSION: 1. No acute findings. 2. Status post biliary tract instrumentation. Common duct stent in place with mild expected pneumobi mallika. 3. Stable liver and pancreatic cysts. TECHNICAL DOCUMENTATION: JOB ID: [id number] Quality ID # [id number]: Final reports with documentation of one or more dose reduction techniques (e.g., Au tomated exposure control, adjustment of the mA and/or kV according to patient size, use of iterative reconstruction technique) 2010 [employer]- All Rights Reserved Reading location - IP/workstation name: [email or web address]
[2019-04-07 15:29] VITALS: BP 131/74
== END 2019-04-07 15:37 | disposition short-term general hospital (02) ==
LOC: ER 09:12
DX: K85.90 Acute pancreatitis without necrosis or infection, unspecified (principal); R10.11 Right upper quadrant pain; K86.2 Cyst of pancreas; R10.819 Abdominal tenderness, unspecified site; R11.0 Nausea; R80.9 Proteinuria, unspecified; D72.829 Elevated white blood cell count, unspecified; I10 Essential (primary) hypertension; Z96.89 Presence of other specified functional implants; Z88.8 Allergy status to other drugs, medicaments and biological substances; Z88.0 Allergy status to penicillin
CPT/HCPCS: 96376; 99285; 96361; 96374; 36415; 83690; 85025; 80053; 81001; 74177; J2270; J7030

== ENCOUNTER 2019-04-18 15:47 | Emergency (ER) | payer MEDICARE, BC ==
--- NOTE | 2019-04-18 17:52 | ER Document Report ---
HPI - HPI Patient complains to provider of: janet drain flush Time Seen by Provider: 04/18/19 17:29 Onset: Yesterday Onset/Duration: Sudden Pain Level: Denies Context: This 64-year-old female presents emergency department with request to flush her drain. Patient reports that she was recently treated at 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 Patient reports a drain was placed into her liver. She was discharged yesterday and told to flush the drain twice a day. She was not prescribed any flushes. Patient went to see Dr. Shay today and they declined flushing her drain they told her to come to the emergency department. She has a video on the phone showing her how to flush the drain but she does not feel comfortable. She denies fever vomiting diarrhea. Patient reports she is just very anxious about flushing it drained. Associated Symptoms: None Exacerbated by: Denies Relieved by: Denies Similar symptoms previously: Yes Recently seen / treated by doctor: Yes Past Medical History - General Information source: Patient - Social History Smoking Status: Unknown if Ever Smoked Cigarette use (# per day): No Frequency of alcohol use: None Drug Abuse: None Family History: Reviewed & Not Pertinent Patient has suicidal ideation: No Patient has homicidal ideation: No - Past Medical History Cardiac Medical History: Reports: Hx Hypercholesterolemia, Hx Hypertension Renal/ Medical History: Denies: Hx Peritoneal Dialysis GI Medical History: Reports: Other - liver and pancreas cyst Past Surgical History: Reports: Hx Breast Surgery - left lumpectomy Vertical Provider Document - CONSTITUTIONAL Agree With Documented VS: Yes Exam Limitations: No Limitations General Appearance: WD/WN, No Apparent Distress - INFECTION CONTROL TRAVEL OUTSIDE OF THE [place] IN LAST 30 DAYS: No - HEENT HEENT: Atraumatic, Normocephalic - NECK Neck: Supple - RESPIRATORY Respiratory: No Respiratory Distress - CARDIOVASCULAR Cardiovascular: Regular Rate - GI/ABDOMEN Gastrointestinal: Abdomen Soft, Abdomen Non-Tender - MUSCULOSKELETAL/EXTREMETIES Musculoskeletal/Extremeties: EDUARDO VARGAS - NEURO Level of Consciousness: Awake, Alert, Appropriate Motor/Sensory: No Motor Deficit - DERM Integumentary: Warm, Dry Adult Front & Back Diagram: 1 - drain with janet bulb intact. pt was provided with hands on instruction on how to flush the drain. Site around the JANET drain is benign looking Course - Re-evaluation Re-evalutation: 04/18/19 18:48 This 64-year-old female presents with request to flush her JANET drain. She was recently discharged from [facility] medical oncology unit. She reports she has a cyst on her pancreas and liver. Patient reports she was discharged home instructed to flush the drain twice a day. Patient went to Dr Shay today and they declined to the [facility] to the emergency department. I contacted Pati PERRY at [phone]. I discussed situation. She will be calling in a prescription for patient to have flushes to flush her drain. We flushed it here in the emergency department. The nurse had the patient do it herself while she walked her through. Patient reported is not as hard as she thought. Patient has video on her phone on how to flush the drain. Pati PERRY is supposed to get in touch with Dr. Garcia and Dr. Cortes to discuss plan of care for this patient. Patient was instructed on all this plan. Patient was instructed to stop by [employer] to obtain flushes. She verbalized understanding to all information. Dictation of this chart was performed using voice recognition software; therefore, there may be some unintended grammatical errors. - Vital Signs Vital signs: Temp Pulse Resp BP Pulse Ox 97.6 F 95 18 143/85 H 92 04/18/19 16:11 04/18/19 16:11 04/18/19 16:11 04/18/19 16:11 04/18/19 16:11 Discharge - Discharge Clinical Impression: drain flush Condition: Stable Disposition: HOME, SELF-CARE Additional Instructions: *You have been treated with flush of your drain *You are to pharmacy picking technician your flushes that the Pati PERRY has ordered at [facility] on [facility]. Pati PERRY will be contacting Dr. Shayy noonan or Dr. Cotres to discuss the flushing of your drain *Follow up with Dr. Lucas tomorrow for plan of care to see who will be flushing your drain from now on. *Return to ED for worsening condition, changes, needs Referrals: KARLI CORTES MD [Primary Care Provider] - Follow up tomorrow
[2019-04-18 18:24] VITALS: BP 140/84
== END 2019-04-18 18:49 | disposition home or self-care (01) ==
LOC: ER 15:47
DX: Z48.03 Encounter for change or removal of drains (principal); K76.89 Other specified diseases of liver; K86.2 Cyst of pancreas; E78.00 Pure hypercholesterolemia, unspecified; I10 Essential (primary) hypertension
CPT/HCPCS: 99283

== ENCOUNTER 2019-04-20 13:08 | Outpatient (CLI) | payer MEDICARE, BC ==
[2019-04-20] MEDS ORDERED: NORMAL SALINE 250 ML IV PRN (13:37)
[2019-04-20] MEDS ORDERED: ERTAPENEM SODIUM 1 GM in NORMAL SALINE 50 ML IV SCH (15:00)
== END 2019-04-20 16:02 | disposition home or self-care (01) ==
LOC: II 13:08 → 2N 13:13 → II 16:02
PROVIDERS: ATTEND Internal Medicine Hematology & Oncology
DX: K75.0 Abscess of liver (principal)
CPT/HCPCS: 96365; J1335; J7050; J1642

== ENCOUNTER 2019-04-21 10:52 | Outpatient (CLI) | payer MEDICARE, BC ==
[2019-04-21] MEDS ORDERED: NORMAL SALINE 250 ML IV PRN (11:14)
[2019-04-21] MEDS ORDERED: ERTAPENEM SODIUM 1 GM in NORMAL SALINE 50 ML IV PRN (11:47)
[2019-04-21 11:48] VITALS: BP 123/81
[2019-04-21] MEDS ORDERED: ERTAPENEM SODIUM 1 GM in NORMAL SALINE 50 ML IV SCH (12:00)
[2019-04-21] MEDS ORDERED: NORMAL SALINE 10 ML SDV (AFTER EACH USE) IV PRN (13:30)
[2019-04-21] MEDS ORDERED: NORMAL SALINE 10 ML SDV (SCHEDULED) IV SCH (22:00)
[2019-04-22] MEDS ORDERED: ERTAPENEM SODIUM 1 GM in NORMAL SALINE 50 ML IV SCH (10:00)
== END 2019-04-21 11:57 | disposition home or self-care (01) ==
LOC: II 10:52 → 2N 10:53 → II 11:57
PROVIDERS: ATTEND Internal Medicine Hematology & Oncology
DX: K75.0 Abscess of liver (principal)
CPT/HCPCS: 96365; J1335; J1642

== ENCOUNTER 2019-04-27 09:00 | Outpatient (CLI) | payer MEDICARE, BC ==
[2019-04-27] MEDS ORDERED: ERTAPENEM SODIUM 1 GM in NORMAL SALINE 50 ML IV PRN (09:54)
[2019-04-27] MEDS ORDERED: NORMAL SALINE 250 ML IV PRN (09:56)
== END 2019-04-27 11:36 | disposition home or self-care (01) ==
LOC: II 09:00 → 2S 10:30 → II 11:36
PROVIDERS: ATTEND Internal Medicine Hematology & Oncology
DX: C50.312 Malignant neoplasm of lower-inner quadrant of left female breast (principal)
CPT/HCPCS: J1335; J1642; 96365

== ENCOUNTER 2019-04-28 09:32 | Outpatient (CLI) | payer MEDICARE, BC ==
[2019-04-28] MEDS ORDERED: ERTAPENEM SODIUM 1 GM in NORMAL SALINE 50 ML IV PRN (10:11)
[2019-04-28] MEDS ORDERED: NORMAL SALINE 250 ML IV PRN (10:12)
== END 2019-04-28 11:50 | disposition home or self-care (01) ==
LOC: 2S 09:32 → II 09:32
PROVIDERS: ATTEND Internal Medicine Hematology & Oncology
DX: C50.312 Malignant neoplasm of lower-inner quadrant of left female breast (principal)
CPT/HCPCS: J1335; J1642; 96365

== ENCOUNTER 2019-05-04 09:17 | Outpatient (CLI) | payer MEDICARE, BC ==
[2019-05-04] MEDS ORDERED: NORMAL SALINE 250 ML IV PRN (09:50)
[2019-05-04 09:55] VITALS: BP 132/75
[2019-05-04] MEDS ORDERED: ERTAPENEM SODIUM 1 GM in NORMAL SALINE 50 ML IV ONE (11:00)
== END 2019-05-04 11:31 | disposition home or self-care (01) ==
LOC: II 09:17 → 2N 09:45 → II 11:31
PROVIDERS: ATTEND Internal Medicine Hematology & Oncology
DX: C50.312 Malignant neoplasm of lower-inner quadrant of left female breast (principal)
CPT/HCPCS: 96365; J1335; J7050; J1642

== ENCOUNTER 2019-05-05 09:18 | Outpatient (CLI) | payer MEDICARE, BC ==
[2019-05-05] MEDS ORDERED: NORMAL SALINE 250 ML IV PRN (09:48)
[2019-05-05 10:02] VITALS: BP 110/71
[2019-05-05] MEDS ORDERED: ERTAPENEM SODIUM 1 GM in NORMAL SALINE 50 ML IV ONE (11:00)
== END 2019-05-05 11:13 | disposition home or self-care (01) ==
LOC: 2N 09:18 → II 09:18
PROVIDERS: ATTEND Internal Medicine Hematology & Oncology
DX: C50.312 Malignant neoplasm of lower-inner quadrant of left female breast (principal)
CPT/HCPCS: 96365; J1335; J1642

== ENCOUNTER 2019-05-11 08:47 | Outpatient (CLI) | payer MEDICARE, BC ==
[2019-05-11] MEDS ORDERED: NORMAL SALINE 250 ML IV PRN (09:03)
[2019-05-11 09:26] VITALS: BP 123/72
[2019-05-11] MEDS ORDERED: NORMAL SALINE 10 ML SDV (AFTER EACH USE) IV PRN (10:00)
[2019-05-11] MEDS ORDERED: NORMAL SALINE 10 ML SDV (SCHEDULED) IV SCH (10:00)
[2019-05-11] MEDS ORDERED: ERTAPENEM SODIUM 1 GM in NORMAL SALINE 50 ML IV SCH (10:00)
[2019-05-11] MEDS ORDERED: ERTAPENEM SODIUM 1 GM in NORMAL SALINE 50 ML IV ONE (10:30)
== END 2019-05-11 10:52 | disposition home or self-care (01) ==
LOC: II 08:47 → 2N 08:47 → II 10:52
PROVIDERS: ATTEND Internal Medicine Hematology & Oncology
DX: K75.0 Abscess of liver (principal)
CPT/HCPCS: 96365; J1335; J1642

== ENCOUNTER 2019-05-12 08:56 | Outpatient (CLI) | payer MEDICARE, BC ==
[2019-05-12 09:18] VITALS: BP 111/75
[2019-05-12] MEDS ORDERED: NORMAL SALINE 10 ML SDV (AFTER EACH USE) IV PRN (09:30)
[2019-05-12] MEDS ORDERED: ERTAPENEM SODIUM 1 GM in NORMAL SALINE 50 ML IV ONE (10:00)
[2019-05-12] MEDS ORDERED: NORMAL SALINE 10 ML SDV (SCHEDULED) IV SCH (10:00)
== END 2019-05-12 10:27 | disposition home or self-care (01) ==
LOC: 2N 08:56 → II 08:56
PROVIDERS: ATTEND Internal Medicine Hematology & Oncology
DX: K75.0 Abscess of liver (principal)
CPT/HCPCS: 96365; J1335; J1642

== ENCOUNTER 2019-07-19 14:58 | Observation (INO) | payer MEDICARE, BC ==
[2019-07-19] MEDS ORDERED: NORMAL SALINE 1000 ML 1,000 ML IV ONE (15:15)
--- NOTE | 2019-07-19 15:17 | ER Document Report ---
ED Medical Screen (RME) - General Chief Complaint: Abnormal Lab Results Stated Complaint: LOW POTTASIUM Time Seen by Provider: 07/19/19 15:15 Primary Care Provider: KARLI SHELBY MD [Primary Care Provider] - Follow up as needed Mode of Arrival: Wheelchair Information source: Patient Notes: Patient presents complaining of feeling bad for the past 8 days. Patient is sta tus post Whipple procedure about 5 weeks ago. Patient states that she has felt lightheaded and dizzy. Patient reports having outpatient labs and CT scan performed earlier today. Patient was notified that her potassium was 2.5. Patient denies any pain symptoms. Patient denies any nausea or vomiting or diarrhea at this time. hx: Hypertension, dyslipidemia, breast cancer, Whipple procedure I have greeted and performed a rapid initial assessment of this patient. A comprehensive ED assessment and evaluation of the patient, analysis of test results and completion of the medical decision making process will be conducted by additional ED providers. TRAVEL OUTSIDE OF THE [place] IN LAST 30 DAYS: No - Related Data Allergies/Adverse Reactions: aspirin Allergy (Verified 07/19/19 15:03) ciprofloxacin [From Cipro] Allergy (Verified 07/19/19 15:14) ezetimibe [From Vytorin] Allergy (Verified 07/19/19 15:14) levofloxacin Allergy (Verified 07/19/19 15:14) Penicillins Allergy (Verified 07/19/19 15:03) simvastatin [From Vytorin] Allergy (Verified 07/19/19 15:14) Past Medical History - Social History Chew tobacco use (# tins/day): No Frequency of alcohol use: None Drug Abuse: None - Past Medical History Cardiac Medical History: Reports: Hx Hypercholesterolemia, Hx Hypertension Renal/ Medical History: Denies: Hx Peritoneal Dialysis Past Surgical History: Reports: Hx Breast Surgery - left lumpectomy Physical Exam - Vital signs Vitals: Temp Pulse Resp BP Pulse Ox 98.0 F 121 H 22 H 81/47 L 99 07/19/19 15:05 07/19/19 15:05 07/19/19 15:05 07/19/19 15:05 07/19/19 15:05 - Cardiovascular Rhythm: Tachycardia Heart sounds: S1 appreciated, S2 appreciated Course - Vital Signs Vital signs: Temp Pulse Resp BP Pulse Ox 98.0 F 121 H 22 H 78/42 L 99 07/19/19 15:10 07/19/19 15:05 07/19/19 15:10 07/19/19 15:10 07/19/19 15:10 Doctor's Discharge - Discharge Referrals: KARLI SHELBY MD [Primary Care Provider] - Follow up as needed
[2019-07-19 15:50] LABS: ABSOLUTE BASOPHILS # (AUTO) 0.1 10^3/uL (0.0-0.2); ABSOLUTE EOSINOPHILS # (AUTO) 0.1 10^3/uL (0.0-0.6); ABSOLUTE LYMPHOCYTES (AUTO) 1.8 10^3/uL (0.5-4.7); ABSOLUTE MONOCYTES (AUTO) 1.4 10^3/uL (0.1-1.4); BASOPHILS % (AUTO) 0.5 % (0-2); EOSINOPHILS % (AUTO) 0.5 % (0-6); HEMATOCRIT 31.6 % (36.0-47.0); HEMOGLOBIN 10.7 g/dL (12.0-15.5); LYMPHOCYTES % (AUTO) 10.3 % (13-45); MEAN CORPUSCULAR HEMOGLOBIN 28.1 pg (27.0-33.4); MEAN CORPUSCULAR HGB CONC 33.8 g/dL (32.0-36.0); MEAN CORPUSCULAR VOLUME 83 fl (80-97); MONOCYTES % (AUTO) 8.1 % (3-13); PLATELET COUNT 614 10^3/uL (150-450); RED CELL DISTRIBUTION WIDTH 14.9 % (11.5-14.0); SEGMENTED NEUTROPHILS % (AUTO) 80.6 % (42-78); TOTAL CELLS COUNTED % (AUTO) 100 %; WHITE BLOOD COUNT 17.4 10^3/uL (4.0-10.5)
[2019-07-19 15:55] LABS: INTERNATIONAL RATION (INR) 1.05; PROTHROMBIN TIME 13.7 SEC (11.4-15.4)
[2019-07-19 16:08] LABS: ALBUMIN 3.5 g/dL (3.5-5.0); ALKALINE PHOSPHATASE 177 U/L (38-126); ASPARTATE AMINO TRANSFERASE 23 U/L (14-36); BILIRUBIN,DIRECT 0.4 mg/dL (0.0-0.4); BILIRUBIN,TOTAL 0.8 mg/dL (0.2-1.3); BLOOD UREA NITROGEN 25 mg/dL (7-20); CALCIUM 10.3 mg/dL (8.4-10.2); CHLORIDE 78 mmol/L (98-107); GLUCOSE 124 mg/dL (75-110); POTASSIUM 3.2 mmol/L (3.6-5.0); TOTAL PROTEIN 6.8 g/dL (6.3-8.2)
[2019-07-19 16:13] LABS: CARBON DIOXIDE 30 mmol/L (22-30)
[2019-07-19 16:16] LABS: VENOUS BLOOD BASE EXCESS 4.9 mmol/L; VENOUS BLOOD HCO3 26.8 mmol/L (20-32); VENOUS BLOOD PCO2 31.1 mmHg (35-63); VENOUS BLOOD PH 7.55 (7.30-7.42)
[2019-07-19 16:16] LABS: ANION GAP 21 (5-19)
--- NOTE | 2019-07-19 16:37 | ER Document Report ---
ED Medical Screen (RME) - General Chief Complaint: Abnormal Lab Results Stated Complaint: LOW POTTASIUM Time Seen by Provider: 07/19/19 15:15 Primary Care Provider: KARLI SHELBY MD [Primary Care Provider] - Follow up as needed Mode of Arrival: Wheelchair TRAVEL OUTSIDE OF THE [place] IN LAST 30 DAYS: No - Related Data Allergies/Adverse Reactions: aspirin Allergy (Verified 07/19/19 15:03) ciprofloxacin [From Cipro] Allergy (Verified 07/19/19 15:14) ezetimibe [From Vytorin] Allergy (Verified 07/19/19 15:14) levofloxacin Allergy (Verified 07/19/19 15:14) Penicillins Allergy (Verified 07/19/19 15:03) simvastatin [From Vytorin] Allergy (Verified 07/19/19 15:14) Past Medical History - Social History Chew tobacco use (# tins/day): No Frequency of alcohol use: None Drug Abuse: None - Past Medical History Cardiac Medical History: Reports: Hx Hypercholesterolemia, Hx Hypertension Renal/ Medical History: Denies: Hx Peritoneal Dialysis Past Surgical History: Reports: Hx Breast Surgery - left lumpectomy Physical Exam - Vital signs Vitals: Temp Pulse Resp BP Pulse Ox 98.0 F 121 H 22 H 81/47 L 99 07/19/19 15:05 07/19/19 15:05 07/19/19 15:05 07/19/19 15:05 07/19/19 15:05 Course - Vital Signs Vital signs: Temp Pulse Resp BP Pulse Ox 98.0 F 121 H 22 H 78/42 L 99 07/19/19 15:10 07/19/19 15:05 07/19/19 15:10 07/19/19 15:10 07/19/19 15:10 - Laboratory Result Diagrams: 07/19/19 15:30 07/19/19 15:30 Laboratory results interpreted by me: 07/19/19 07/19/19 07/19/19 15:30 15:30 15:36 WBC 17.4 H Hgb 10.7 L Hct 31.6 L RDW 14.9 H Plt Count 614 H Lymph % (Auto) 10.3 L Absolute Neuts (auto) 14.0 H Seg Neutrophils % 80.6 H VBG pH VBG pCO2 Sodium 128.8 L Potassium 3.2 L Chloride 78 L Anion Gap 21 H BUN 25 H Creatinine 1.38 H Est GFR ( Amer) 46 L Est GFR (MDRD) Non-Af 38 L Glucose 124 H POC Glucose 128 H Calcium 10.3 H Alkaline Phosphatase 177 H 07/19/19 15:51 WBC Hgb Hct RDW Plt Count Lymph % (Auto) Absolute Neuts (auto) Seg Neutrophils % VBG pH 7.55 H VBG pCO2 31.1 L Sodium Potassium Chloride Anion Gap BUN Creatinine Est GFR ( Amer) Est GFR (MDRD) Non-Af Glucose POC Glucose Calcium Alkaline Phosphatase Doctor's Discharge - Discharge Referrals: KARLI SHELBY MD [Primary Care Provider] - Follow up as needed
[2019-07-19] MEDS ORDERED: RINGERS SOLUTION,LACTATED 1,000 ML IV ONE ×2 (16:46)
--- NOTE | 2019-07-19 16:46 | ER Document Report ---
ED General - General Chief Complaint: Abnormal Lab Results Stated Complaint: LOW POTTASIUM Time Seen by Provider: 07/19/19 15:15 Primary Care Provider: KARLI SHELBY MD [Primary Care Provider] - Follow up as needed Mode of Arrival: Wheelchair TRAVEL OUTSIDE OF THE [place] IN LAST 30 DAYS: No - Related Data Allergies/Adverse Reactions: aspirin Allergy (Verified 07/19/19 15:03) ciprofloxacin [From Cipro] Allergy (Verified 07/19/19 15:14) ezetimibe [From Vytorin] Allergy (Verified 07/19/19 15:14) levofloxacin Allergy (Verified 07/19/19 15:14) Penicillins Allergy (Verified 07/19/19 15:03) simvastatin [From Vytorin] Allergy (Verified 07/19/19 15:14) Past Medical History - General Information source: Patient - Social History Smoking Status: Never Smoker Chew tobacco use (# tins/day): No Frequency of alcohol use: None Drug Abuse: None Family History: Reviewed & Not Pertinent Patient has suicidal ideation: No Patient has homicidal ideation: No - Past Medical History Cardiac Medical History: Reports: Hx Hypercholesterolemia, Hx Hypertension Renal/ Medical History: Denies: Hx Peritoneal Dialysis Past Surgical History: Reports: Hx Breast Surgery - left lumpectomy Review of Systems - Review of Systems Notes: Review of systems pertinent positives and negatives in HPI otherwise all the systems were reviewed and acutely negative Physical Exam - Vital signs Vitals: Temp Pulse Resp BP Pulse Ox 98.0 F 121 H 22 H 81/47 L 99 07/19/19 15:05 07/19/19 15:05 07/19/19 15:05 07/19/19 15:05 07/19/19 15:05 Patient presents emergency department indicating that she is been feeling bad for about the past 8 days. She has been feeling a bit lightheaded. She denies any headaches fever cough chest pain palpitations abdominal pain diarrhea or dysuria. Had some mild dyspnea on exertion since her surgery is unchanged. Reports that over the past week she is not been able to tolerate solid foods whenever she eats something solid she throws up but has been able to tolerate some liquids. She saw her surgeon today ordered blood work and a CT then they contacted later indicated her potassium was low and referred to the ED for further evaluation. Denies any recent change in her blood pressure medication His medical history is complicated including hypertension elevated cholesterol pancreatitis in March related to a gallstone. He had an endoscopy at the time with a stent placed and then developed peritonitis. And received outpatient antibiotics Whipple procedure done at [facility] about 6 weeks ago that was removed and gallbladder was removed and was doing well postop cytology did not reveal any type of malignancy. 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 EYES: Pupils equal round and reactive to light, extraocular movements intact, sclera anicteric, conjunctiva are normal. ENT: nares patent, oropharynx clear without exudates. Slightly dry mucous membranes. NECK: supple without lymphadenopathy LUNGS: Breath sounds clear to auscultation bilaterally and equal. No wheezes rales or rhonchi. HEART: Rapid rate and rhythm that is regular without murmurs she does have a radial pulse. Her extremities are warm ABDOMEN: Soft, there is some minimal epigastric tenderness. Lower abdomen is nontender she has several old incision sites from the laparoscope that are healing well normoactive bowel sounds. EXTREMITIES: No deformity, no edema. No palpable cords NEUROLOGICAL: No focal neurological deficits. Moves all extremities spontaneously and on command. PSYCH: Normal mood, normal affect. SKIN: Warm, Dry, normal turgor, no rashes or lesions noted. BACK-nontender in the midline Differential diagnosis was dehydration abscess electrolyte abnormalities Monia Course - Re-evaluation Re-evalutation: 07/19/19 19:00 ED patient remained stable was given a liter of normal saline and 1 L of lactate. Blood pressure did improve to about 110 we are still waiting for urine. Was given 1 dose of potassium p.o. as well as IV potassium and 1 dose of magnesium Medical decision making patient presents with some dizziness and hypokalemia. She was found to be tachycardic and hypotensive that has improved with fluids specialist probably dehydrated. We did attempt to have the radiologist from here read the CT with a refused. We contacted the hospital where was done and they refused to have the radiologist read it. I was able to get a hold of her oncologist who he saw today who indicates a CT was read by radiology and was unremarkable. I did discuss the findings with him including laboratory studies. Feels that most of these are at baseline indicates that her weight has been running about 15-16 he did not feel that the slight increase today was consistent with an infection. Talk to her today when she was in the office about admission she refused but does agree she probably needs admission for hydration. Does not feel the patient needs to be transferred at this point will go ahead and consult the hospitalist for admission hydration and potassium supplementation they were called at [phone] and requested call back at [phone] discussed the case with them and they have accepted patient I discussed results of laboratory findings and diagnostic test with patient/family. The treatment plan was explained and I reviewed the discharge instructions with them. Questions were answered. The patient/family verbalizes understanding Dictation was done using voice recognition software. There may be some grammatical errors which are unintentional 07/19/19 19:32 - Vital Signs Vital signs: Temp Pulse Resp BP Pulse Ox 98.0 F 121 H 12 121/69 100 07/19/19 15:10 07/19/19 15:05 07/19/19 19:20 07/19/19 19:20 07/19/19 19:20 - Laboratory Result Diagrams: 07/19/19 15:30 07/19/19 15:30 Laboratory results interpreted by me: 07/19/19 07/19/19 07/19/19 15:30 15:30 15:30 WBC 17.4 H Hgb 10.7 L Hct 31.6 L RDW 14.9 H Plt Count 614 H Lymph % (Auto) 10.3 L Absolute Neuts (auto) 14.0 H Seg Neutrophils % 80.6 H VBG pH VBG pCO2 Sodium 128.8 L Potassium 3.2 L Chloride 78 L Anion Gap 21 H BUN 25 H Creatinine 1.38 H Est GFR ( Amer) 46 L Est GFR (MDRD) Non-Af 38 L Glucose 124 H POC Glucose Calcium 10.3 H Alkaline Phosphatase 177 H Lipase 325.3 H 07/19/19 07/19/19 15:36 15:51 WBC Hgb Hct RDW Plt Count Lymph % (Auto) Absolute Neuts (auto) Seg Neutrophils % VBG pH 7.55 H VBG pCO2 31.1 L Sodium Potassium Chloride Anion Gap BUN Creatinine Est GFR ( Amer) Est GFR (MDRD) Non-Af Glucose POC Glucose 128 H Calcium Alkaline Phosphatase Lipase - Diagnostic Test Radiology reviewed: Reports reviewed - Chest x-ray shows no acute abnormalities Radiology results interpreted by me: 07/19/19 19:04 T chest x-ray reveals no acute abnormalities - EKG Interpretation by Me Additional EKG results interpreted by me: 07/19/19 19:04 EKG shows a normal sinus rhythm there is a large amount of baseline artifact computer is reading as atrial fibrillation however the QRS complexes mapped as regular and auscultation she had a regular rate and rhythm. It is wider so much artifact is not trembling at the time she has no acute ST segment abnormalities QT was normal Critical Care Note - Critical Care Note Total time excluding time spent on procedures (mins): 35 Discharge - Discharge Clinical Impression: Dehydration, Hypokalemia, Hyponatremia Condition: Good Disposition: ADMITTED OBSERVATION Admitting Provider: [facility] Unit Admitted: Medical Floor Referrals: KARLI SHELBY MD [Primary Care Provider] - Follow up as needed
--- NOTE | 2019-07-19 16:56 | RADIOLOGY REPORT (SQ) ---
EXAM DESCRIPTION: CHEST SINGLE VIEW COMPLETED DATE/TIME: 07/19/2019 4:46 pm REASON FOR STUDY: hypotension COMPARISON: 06/13/2007 EXAM PARAMETERS: NUMBER OF VIEWS: One view. TECHNIQUE: Single frontal radiographic view of the chest acquired. RADIATION DOSE: NA LIMITATIONS: None. FINDINGS: LUNGS AND PLEURA: No opacities, masses or pneumothorax. No pleural effusion. MEDIASTINUM AND HILAR STRUCTURES: No masses. Contour normal. HEART AND VASCULAR STRUCTURES: Heart normal in size. Normal vasculature. BONES: No acute findings. HARDWARE: None in the chest. OTHER: No other significant finding. IMPRESSION: NO ACUTE RADIOGRAPHIC FINDING IN THE CHEST. TECHNICAL DOCUMENTATION: JOB ID: [id number] [employer]- All Rights Reserved Reading location - IP/workstation name: [email or web address]
[2019-07-19] MEDS ORDERED: POTASSI CL 20 MEQ/50 ML RIDER 20 MEQ/50 ML RTUPB IV ONE (17:15)
[2019-07-19] MEDS ORDERED: POTASSIUM CHLORIDE 10 MEQ TABLET.ER PO ONE (17:15)
[2019-07-19] MEDS ORDERED: MAGNESIUM SULFATE/D5W 1 GM/100 ML RTUPB IV ONE (19:22)
[2019-07-19] MEDS ORDERED: NITROGLYCERIN 0.4 MG/TAB 25 TAB/BOTTLE SL PRN (19:59)
[2019-07-19] MEDS ORDERED: ACETAMINOPHEN 325 MG TABLET PO PRN (19:59)
[2019-07-19] MEDS ORDERED: HYDRALAZINE HCL INJ/PF 20 MG/1 ML SDV IV PRN (19:59)
[2019-07-19] MEDS ORDERED: LEVALBUTEROL HCL NEB 0.63 MG/3 ML AMPUL NEB PRN (19:59)
[2019-07-19] MEDS ORDERED: MAGNESIUM HYDROXIDE SUSP 30 ML UDCUP PO PRN (20:03)
[2019-07-19] MEDS ORDERED: PROMETHAZINE HCL INJ 25 MG/1 ML VIAL IV PRN (20:03)
[2019-07-19] MEDS ORDERED: TEMAZEPAM 15 MG CAPSULE PO PRN (20:03)
[2019-07-19] MEDS ORDERED: MAG HYDROX/AL HYDROX/SIMETH SUSP 30 ML UDCUP PO PRN (20:03)
[2019-07-19 21:40] LABS: APPEARANCE,URINE SLIGHTLY-CLOUDY; BILIRUBIN,URINE NEGATIVE (NEGATIVE); COLOR,URINE YELLOW; GLUCOSE, URINE 50 mg/dL (NEGATIVE); KETONES,URINE 20 mg/dL (NEGATIVE); LEUKOCYTE ESTERASE,URINE SMALL (NEGATIVE); NITRITE,URINE NEGATIVE (NEGATIVE); PROTEIN,URINE NEGATIVE (NEGATIVE); URINE SPECIFIC GRAVITY 1.039; UROBILINOGEN,URINE NEGATIVE mg/dL (<2.0)
--- NOTE | 2019-07-19 21:40 | EKG REPORT ---
SEVERITY:- DEFECTIVE ECG - SEVERE BASELINE DISTORTION, LIKELY SINUS RHYTHM. : Confirmed by: Aubrey Avalos MD 19-Jul-2019 21:39:36
[2019-07-19] MEDS ORDERED: RINGERS SOLUTION,LACTATED 1,000 ML IV PRN (22:00)
[2019-07-19] MEDS: POTASSI CL 20 MEQ/D5LR 1L 20 MEQ/1,000 ML RTUINJ IV PRN (22:14)
[2019-07-19] MEDS: SUCRALFATE 1 GM TABLET PO SCH (22:15)
[2019-07-19] MEDS: HEPARIN SOD (PORCINE) 5,000 UNIT/ML 1 ML VIAL SUBCUT SCH (22:15)
[2019-07-19] MEDS: METOCLOPRAMIDE HCL INJ/PF 10 MG/2 ML SDV IV SCH (22:15)
[2019-07-19] MEDS: FAMOTIDINE 20 MG TABLET PO SCH (22:16)
--- NOTE | 2019-07-20 00:23 | PDOC H&P ---
History of Present Illness Admission Date/PCP: 07/19/2019 19:25 KARLI SHELBY MD Patient complains of: Hypokalemia History of Present Illness: KATELYN NICKERSON is a 64 year old female who presented to the emergency room with hypokalemia noted on lab work performed by her surgeon earlier today. She admits a one-week history of mild lightheadedness and dizziness of an orthostatic nature accompanied by mild exertional dyspnea and associated with recent anorexia due to vomiting after consumption of solid foods. She further admits that she has been able to tolerate small amounts of liquids without vomiting. She was seen by her surgeon (Whipple procedure for a pancreatic pseudocyst 6 weeks ago) earlier today and lab work was performed which revealed a potassium of 2.5 and at their instructions she came to the emergency room here for further evaluation. She admits similar symptoms in the past related to her pancreatitis. She has not identified any additional aggravating or ameliorating factors for her hypokalemia. In the emergency room she was found to have a potassium of 3.2, a sodium of 128 and was noted to be mildly hypotensive prior to receiving IV fluids. After receiving IV fluids her blood pressure has been normalized and her vital signs have been stable. She was subsequently admitted to observation status for further evaluation and treatment. Past Medical History Cardiac Medical History: Reports: Hyperlipidema, Hypertension Denies: Coronary Artery Disease, Myocardial Infarction Pulmonary Medical History: Denies: Asthma, Chronic Obstructive Pulmonary Disease (COPD) EENT Medical History: Reports: Eyes - Prescription lenses Denies: Cataracts, Ears - Hearing aids Neurological Medical History: Denies: Hemorrhagic CVA, Ischemic CVA, Seizures Endocrine Medical History: Denies: Diabetes Mellitus Type 1, Diabetes Mellitus Type 2, Hyperthyroidism, Hypothyroidism, Obesity Renal/ Medical History: Denies: Chronic Kidney Disease, Nephrolithiasis Malignancy Medical History: Reports: Breast Cancer GI Medical History: Reports: Other - Pancreatitis with pancreatic pseudocyst Denies: Cirrhosis, Crohn's Disease, Hepatitis, Ulcerative Colitis Musculoskeltal Medical History: Denies: Arthritis, Gout Skin Medical History: Denies: Eczema, Psoriasis Psychiatric Medical History: Denies: Alcohol Dependency, Substance Abuse, Tobacco Dependency Traumatic Medical History: Reports: None Hematology: Reports: Other - Chronic leukocytosis 15K-18K Denies: Anemia, Bleeding Tendencies Infectious Medical History: Reports: None Past Surgical History Past Surgical History: Patient underwent an endoscopic stent placement for drainage of a pancreatic pseudocyst which resulted in peritonitis and ultimately a Whipple procedure was performed 6 weeks ago. Past Surgical History: Reports: Mastectomy - Left lumpectomy with radiation or breast cancer Social History Information Source: Patient Lives with: Alone Smoking Status: Former Smoker Electronic Cigarette use?: No Frequency of Alcohol Use: Occasional Hx Recreational Drug Use: No Drugs: None Hx Prescription Drug Abuse: No - Advance Directive Resuscitation Status: Full Code Surrogate healthcare decision maker:: Michaela Hoffman Family History Family History: CAD, Hyperlipidemia, Hypertension, Malignancy. denies: DM Parental Family History Reviewed: Yes Children Family History Reviewed: No Sibling(s) Family History Reviewed.: Yes Medication/Allergy Home Medications: Anastrozole [Arimidex 1 mg Tablet] 1 mg PO QPM 07/19/19 Calcium Carbonate [Calcium] 1,200 mg PO DAILY 07/19/19 Eszopiclone [Lunesta] 3 mg PO QHS 07/19/19 Multivit/Iron/Folic Acid/Hb179 [Womens Multivit Hi Potency Tab] 1 each PO DAILY 07/19/19 Olmesartan/Hydrochlorothiazide [Olmesartan-Hctz 40-12.5 mg Tab] 1 each PO QAM 07/19/19 Omeprazole 20 mg PO QPM 07/19/19 Potassium Chloride [K-Tab ER] 20 meq PO QAM 07/19/19 Allergies/Adverse Reactions: aspirin Allergy (Verified 07/19/19 15:03) ciprofloxacin [From Cipro] Allergy (Verified 07/19/19 15:14) ezetimibe [From Vytorin] Allergy (Verified 07/19/19 15:14) levofloxacin Allergy (Verified 07/19/19 15:14) Penicillins Allergy (Verified 07/19/19 15:03) simvastatin [From Vytorin] Allergy (Verified 07/19/19 15:14) Review of Systems Constitutional: ABSENT: chills, fever(s) Eyes: ABSENT: visual disturbances, other - Eye pain Ears: ABSENT: hearing changes, other - Ear pain Nose, Mouth, and Throat: ABSENT: headache(s), mouth pain, sore throat Cardiovascular: PRESENT: as per HPI, dyspnea on exertion, other - Lightheadedness. ABSENT: chest pain, palpitations Respiratory: ABSENT: cough, dyspnea Gastrointestinal: PRESENT: as per HPI, nausea, vomiting, other - Anorexia. ABSENT: abdominal pain, constipation, diarrhea Genitourinary: ABSENT: dysuria, hematuria Musculoskeletal: ABSENT: back pain, joint swelling, muscle weakness Integumentary: ABSENT: pruritus, rash Neurological: ABSENT: confusion, convulsions, focal weakness, memory loss, syncope Psychiatric: ABSENT: anxiety, depression Endocrine: ABSENT: cold intolerance, heat intolerance Hematologic/Lymphatic: ABSENT: easy bleeding, easy bruising Allergic/Immunologic: ABSENT: seasonal rhinorrhea Physical Exam Vital Signs: Temp Pulse Resp BP Pulse Ox 98.0 F 121 H 22 H 78/42 L 99 07/19/19 15:10 07/19/19 15:05 07/19/19 15:10 07/19/19 15:10 07/19/19 15:10 Intake & Output 07/17/19 07/18/19 07/19/19 23:59 23:59 23:59 Intake Total 2020 Balance 2020 Weight 79.6 kg General appearance: PRESENT: no acute distress, cooperative Head exam: PRESENT: atraumatic, normocephalic Eye exam: PRESENT: conjunctiva pink. ABSENT: conjunctival injection, scleral icterus Ear exam: PRESENT: normal external ear exam. ABSENT: bleeding, drainage Mouth exam: PRESENT: dry mucosa, neck supple Neck exam: ABSENT: thyromegaly, tracheal deviation Respiratory exam: PRESENT: clear to auscultation gabo, symmetrical, unlabored Cardiovascular exam: PRESENT: RRR. ABSENT: clicks, gallop, rubs Pulses: PRESENT: normal radial pulses, normal dorsalis pedis pul GI/Abdominal exam: PRESENT: normal bowel sounds, soft. ABSENT: tenderness Rectal exam: PRESENT: deferred Extremities exam: ABSENT: joint swelling, pedal edema Musculoskeletal exam: ABSENT: deformity, dislocation Neurological exam: PRESENT: alert, oriented to person, oriented to place, oriented to time, oriented to situation, CN II-XII grossly intact. ABSENT: motor sensory deficit Psychiatric exam: PRESENT: appropriate affect, normal mood Skin exam: PRESENT: dry, intact, warm. ABSENT: jaundice, rash, urticaria Results Laboratory Results: 07/19/19 15:30 07/19/19 15:30 07/19/19 07/19/19 07/19/19 15:30 15:30 15:30 WBC 17.4 H RBC 3.80 Hgb 10.7 L Hct 31.6 L MCV 83 MCH 28.1 MCHC 33.8 RDW 14.9 H Plt Count 614 H Seg Neutrophils % 80.6 H VBG pH VBG pCO2 VBG HCO3 VBG Base Excess Sodium 128.8 L Potassium 3.2 L Chloride 78 L Carbon Dioxide 30 Anion Gap 21 H BUN 25 H Creatinine 1.38 H Est GFR ( Amer) 46 L Glucose 124 H Calcium 10.3 H Magnesium 1.6 Total Bilirubin 0.8 AST 23 Alkaline Phosphatase 177 H Total Protein 6.8 Albumin 3.5 Lipase 325.3 H 07/19/19 15:51 WBC RBC Hgb Hct MCV MCH MCHC RDW Plt Count Seg Neutrophils % VBG pH 7.55 H VBG pCO2 31.1 L VBG HCO3 26.8 VBG Base Excess 4.9 Sodium Potassium Chloride Carbon Dioxide Anion Gap BUN Creatinine Est GFR ( Amer) Glucose Calcium Magnesium Total Bilirubin AST Alkaline Phosphatase Total Protein Albumin Lipase 07/19/19 15:30 Troponin I < 0.012 Impressions: Chest X-Ray 07/19/19 15:15 IMPRESSION: NO ACUTE RADIOGRAPHIC FINDING IN THE CHEST. Assessment and Plan - Diagnosis (1) Hypovolemia associated with vomiting Is this a current diagnosis for this admission?: Yes (2) Hypokalemia Is this a current diagnosis for this admission?: Yes (3) Hyponatremia Is this a current diagnosis for this admission?: Yes (4) Acute nontraumatic kidney injury Is this a current diagnosis for this admission?: Yes (5) Hypertension Qualifiers: Hypertension type: essential hypertension Qualified Code(s): I10 - Essential (primary) hypertension Is this a current diagnosis for this admission?: Yes (6) Hyperlipidemia Qualifiers: Hyperlipidemia type: unspecified Qualified Code(s): E78.5 - Hyperlipidemia, unspecified Is this a current diagnosis for this admission?: Yes (7) History of leukocytosis Is this a current diagnosis for this admission?: Yes (8) Anemia of chronic disease Is this a current diagnosis for this admission?: Yes (9) History of left breast cancer Is this a current diagnosis for this admission?: Yes (10) History of chronic pancreatitis Is this a current diagnosis for this admission?: Yes - Plan Summary Summary: The patient will be admitted to observation status on the medical floor where she will receive usual supportive and symptomatic cares. She will receive IV hydration with sodium and potassium repletion utilizing D5 normal saline with 20 mEq of potassium chloride per liter. She will use Nubain 5 to 10 mg IV every 3 hours as needed for pain control. She will receive Reglan 10 mg IV before meals and at bedtime to control nausea, sucralfate meals and at bedtime, famotidine before meals and at bedtime and Pancrease 10 with meals. She will be continued on her usual medications for her chronic medical problems when appropriate. - Time Time Spent with patient: 25-34 minutes Medications reviewed and adjusted accordingly: Yes Anticipated discharge: Home Within: within 24 hours - Inpatient Certification Based on my medical assessment, after consideration of the patient's comorbiditi es, presenting symptoms, or acuity I expect that the services needed warrant INPATIENT care.: No I certify that my determination is in accordance with my understanding of [facility]'s requirements for reasonable and necessary INPATIENT services [42 CFR 412.3e].: No Medical Necessity: Need Close Monitoring Due to Risk of Patient Decompensation, Need For IV Fluids
[2019-07-20] MEDS: HEPARIN SOD (PORCINE) 5,000 UNIT/ML 1 ML VIAL SUBCUT SCH ×3 (05:58→21:51)
[2019-07-20 06:56] LABS: HEMATOCRIT 25.4 % (36.0-47.0); HEMOGLOBIN 8.7 g/dL (12.0-15.5); MEAN CORPUSCULAR HEMOGLOBIN 28.2 pg (27.0-33.4); MEAN CORPUSCULAR HGB CONC 34.2 g/dL (32.0-36.0); MEAN CORPUSCULAR VOLUME 83 fl (80-97); PLATELET COUNT 385 10^3/uL (150-450); RED BLOOD COUNT 3.08 10^6/uL (3.72-5.28); RED CELL DISTRIBUTION WIDTH 14.8 % (11.5-14.0); WHITE BLOOD COUNT 10.8 10^3/uL (4.0-10.5)
[2019-07-20 07:28] LABS: ANION GAP 12 (5-19); BLOOD UREA NITROGEN 17 mg/dL (7-20); CALCIUM 9.3 mg/dL (8.4-10.2); CARBON DIOXIDE 33 mmol/L (22-30); CHLORIDE 88 mmol/L (98-107); GLUCOSE 113 mg/dL (75-110); POTASSIUM 3.3 mmol/L (3.6-5.0)
[2019-07-20] MEDS: FAMOTIDINE 20 MG TABLET PO SCH ×4 (08:13→21:47)
[2019-07-20] MEDS: POTASSI CL 20 MEQ/D5LR 1L 20 MEQ/1,000 ML RTUINJ IV PRN ×2 (08:16→18:06)
[2019-07-20] MEDS: LIPASE/PROTEASE/AMYLASE 1 CAP CAPSULE.DR PO SCH ×3 (08:22→16:25)
--- NOTE | 2019-07-20 10:37 | PDOC PROGRESS REPORT ---
Subjective Progress Note for:: 07/20/19 Reason For Visit: DEHYDRATION, HYPOKALEMIA, HYPONATREMIA, ACUTE 07/20/2019 patient was admitted for dehydration, hypokalemia, hyponatremia Physical Exam Vital Signs: Temp Pulse Resp BP Pulse Ox 98.1 F 86 16 116/64 96 07/20/19 07:50 07/20/19 07:50 07/20/19 07:50 07/20/19 07:50 07/20/19 07:50 Intake & Output 07/19/19 07/20/19 07/21/19 06:59 06:59 06:59 Intake Total 3360 Output Total 350 Balance 3010 Weight 79.3 kg General appearance: PRESENT: no acute distress, other - Patient sitting up in bed eating breakfast in no distress Respiratory exam: PRESENT: clear to auscultation gabo. ABSENT: rales, rhonchi, wheezes Cardiovascular exam: PRESENT: RRR. ABSENT: diastolic murmur, rubs, systolic murmur Neurological exam: PRESENT: alert, awake, oriented to person, oriented to place, oriented to time, oriented to situation, CN II-XII grossly intact. ABSENT: motor sensory deficit Psychiatric exam: PRESENT: appropriate affect, normal mood. ABSENT: homicidal ideation, suicidal ideation Results Laboratory Results: 07/20/19 06:04 07/20/19 06:04 07/19/19 07/19/19 07/19/19 15:30 15:30 15:30 WBC 17.4 H RBC 3.80 Hgb 10.7 L Hct 31.6 L MCV 83 MCH 28.1 MCHC 33.8 RDW 14.9 H Plt Count 614 H Seg Neutrophils % 80.6 H VBG pH VBG pCO2 VBG HCO3 VBG Base Excess Sodium 128.8 L Potassium 3.2 L Chloride 78 L Carbon Dioxide 30 Anion Gap 21 H BUN 25 H Creatinine 1.38 H Est GFR ( Amer) 46 L Glucose 124 H Calcium 10.3 H Magnesium 1.6 Total Bilirubin 0.8 AST 23 Alkaline Phosphatase 177 H Total Protein 6.8 Albumin 3.5 Lipase 325.3 H TSH Urine Color Urine Appearance Urine pH Ur Specific [place] Urine Protein Urine Glucose (UA) Urine Ketones Urine Blood Urine Nitrite Ur Leukocyte Esterase Urine WBC (Auto) Urine RBC (Auto) 07/19/19 07/19/19 07/20/19 15:51 21:10 06:04 WBC 10.8 H RBC 3.08 L Hgb 8.7 L Hct 25.4 L MCV 83 MCH 28.2 MCHC 34.2 RDW 14.8 H Plt Count 385 Seg Neutrophils % VBG pH 7.55 H VBG pCO2 31.1 L VBG HCO3 26.8 VBG Base Excess 4.9 Sodium Potassium Chloride Carbon Dioxide Anion Gap BUN Creatinine Est GFR ( Amer) Glucose Calcium Magnesium Total Bilirubin AST Alkaline Phosphatase Total Protein Albumin Lipase TSH Urine Color YELLOW Urine Appearance SLIGHTLY-CLOUDY Urine pH 6.0 Ur Specific [place] 1.039 Urine Protein NEGATIVE Urine Glucose (UA) 50 H Urine Ketones 20 H Urine Blood NEGATIVE Urine Nitrite NEGATIVE Ur Leukocyte Esterase SMALL H Urine WBC (Auto) 11 Urine RBC (Auto) 1 07/20/19 07/20/19 06:04 06:04 WBC RBC Hgb Hct MCV MCH MCHC RDW Plt Count Seg Neutrophils % VBG pH VBG pCO2 VBG HCO3 VBG Base Excess Sodium 132.6 L Potassium 3.3 L Chloride 88 L Carbon Dioxide 33 H Anion Gap 12 BUN 17 Creatinine 0.81 Est GFR ( Amer) > 60 Glucose 113 H Calcium 9.3 Magnesium 1.8 Total Bilirubin AST Alkaline Phosphatase Total Protein Albumin Lipase TSH 3.76 Urine Color Urine Appearance Urine pH Ur Specific [place] Urine Protein Urine Glucose (UA) Urine Ketones Urine Blood Urine Nitrite Ur Leukocyte Esterase Urine WBC (Auto) Urine RBC (Auto) 07/19/19 15:30 Troponin I < 0.012 Impressions: Chest X-Ray 07/19/19 15:15 IMPRESSION: NO ACUTE RADIOGRAPHIC FINDING IN THE CHEST. Assessment and Plan - Diagnosis (1) Status post Whipple Is this a current diagnosis for this admission?: Yes (2) Acute nontraumatic kidney injury Is this a current diagnosis for this admission?: Yes (4) Hypokalemia Is this a current diagnosis for this admission?: Yes (5) Hyponatremia Is this a current diagnosis for this admission?: Yes - Plan Summary Summary: The patient will be admitted to observation status on the medical floor where s he will receive usual supportive and symptomatic cares. She will receive IV hydration with sodium and potassium repletion utilizing D5 normal saline with 20 mEq of potassium chloride per liter. She will use Nubain 5 to 10 mg IV every 3 hours as needed for pain control. She will receive Reglan 10 mg IV before meals and at bedtime to control nausea, sucralfate meals and at bedtime, famotidine before meals and at bedtime and Pancrease 10 with meals. She will be continued on her usual medications for her chronic medical problems when appropriate. 07/20/2019 Patient sitting up in bed speaking in full sentences eating breakfast and no complaints. 298 1 pulse 86 blood pressure 116/64 O2 sat 96% on room air [place] white count was 17,400 today it is 10.8 sodium was 128 today is 132 Calcium was 3.2 it is now 3.3 admission chest x-ray was negative BUN on admission was 25 today at 17 creatinine was 1.38 now it is 0.81 GFR was 38 and is now greater than 60 and lactic acid was 1.5 We will continue IV fluids continue K riders Anticipate discharge home tomorrow Patient had a Whipple procedure about 8 weeks ago done in [facility]. Since she has had some episodic vomiting which would account for her lab values - Time Time Spent with patient: 35 or more minutes
[2019-07-20] MEDS: DOCUSATE SODIUM 100 MG CAPSULE PO SCH ×2 (10:51→18:05)
[2019-07-20] MEDS: SUCRALFATE 1 GM TABLET PO SCH ×4 (10:52→21:48)
[2019-07-20] MEDS: METOCLOPRAMIDE HCL INJ/PF 10 MG/2 ML SDV IV SCH ×4 (10:53→21:47)
[2019-07-20] MEDS: POTASSIUM CHLORIDE 20 MEQ PACKET PO SCH ×2 (16:16→16:29)
[2019-07-20] MEDS ORDERED: POTASSIUM CHLORIDE 10 MEQ TABLET.ER PO ONE (18:00)
[2019-07-21] MEDS: HEPARIN SOD (PORCINE) 5,000 UNIT/ML 1 ML VIAL SUBCUT SCH ×2 (06:01→13:03)
[2019-07-21 07:38] LABS: ABSOLUTE BASOPHILS # (AUTO) 0.1 10^3/uL (0.0-0.2); ABSOLUTE EOSINOPHILS # (AUTO) 0.2 10^3/uL (0.0-0.6); ABSOLUTE LYMPHOCYTES (AUTO) 0.9 10^3/uL (0.5-4.7); ABSOLUTE MONOCYTES (AUTO) 0.9 10^3/uL (0.1-1.4); ABSOLUTE NEUT (AUTO) 7.2 10^3/uL (1.7-8.2); BASOPHILS % (AUTO) 1.1 % (0-2); EOSINOPHILS % (AUTO) 2.3 % (0-6); HEMATOCRIT 24.3 % (36.0-47.0); HEMOGLOBIN 8.4 g/dL (12.0-15.5); LYMPHOCYTES % (AUTO) 9.9 % (13-45); MEAN CORPUSCULAR HEMOGLOBIN 28.6 pg (27.0-33.4); MEAN CORPUSCULAR HGB CONC 34.3 g/dL (32.0-36.0); MEAN CORPUSCULAR VOLUME 83 fl (80-97); PLATELET COUNT 323 10^3/uL (150-450); RED BLOOD COUNT 2.92 10^6/uL (3.72-5.28); RED CELL DISTRIBUTION WIDTH 14.9 % (11.5-14.0); SEGMENTED NEUTROPHILS % (AUTO) 76.7 % (42-78); TOTAL CELLS COUNTED % (AUTO) 100 %; WHITE BLOOD COUNT 9.4 10^3/uL (4.0-10.5)
[2019-07-21 07:52] LABS: ANION GAP 6 (5-19); BLOOD UREA NITROGEN 8 mg/dL (7-20); CALCIUM 8.9 mg/dL (8.4-10.2); CARBON DIOXIDE 33 mmol/L (22-30); CHLORIDE 92 mmol/L (98-107); GLUCOSE 100 mg/dL (75-110)
[2019-07-21 07:55] LABS: POTASSIUM 2.7 mmol/L (3.6-5.0)
[2019-07-21] MEDS: POTASSIUM CHLORIDE 20 MEQ/50 ML RTU IV SCH ×2 (08:40→11:56)
[2019-07-21] MEDS: METOCLOPRAMIDE HCL INJ/PF 10 MG/2 ML SDV IV SCH ×3 (08:40→15:32)
[2019-07-21] MEDS: LIPASE/PROTEASE/AMYLASE 1 CAP CAPSULE.DR PO SCH ×3 (08:40→16:28)
[2019-07-21] MEDS: SUCRALFATE 1 GM TABLET PO SCH ×3 (08:40→15:32)
[2019-07-21] MEDS: FAMOTIDINE 20 MG TABLET PO SCH ×3 (08:40→15:32)
[2019-07-21] MEDS: DOCUSATE SODIUM 100 MG CAPSULE PO SCH ×2 (09:27→17:03)
[2019-07-21] MEDS ORDERED: POTASSIUM CHLORIDE 10 MEQ TABLET.ER PO SCH (10:00)
[2019-07-21 16:36] LABS: ANION GAP 9 (5-19); BLOOD UREA NITROGEN 6 mg/dL (7-20); CALCIUM 8.7 mg/dL (8.4-10.2); CARBON DIOXIDE 27 mmol/L (22-30); CHLORIDE 94 mmol/L (98-107); GLUCOSE 102 mg/dL (75-110); POTASSIUM 3.2 mmol/L (3.6-5.0)
[2019-07-21] MEDS ORDERED: POTASSIUM CHLORIDE 10 MEQ TABLET.ER PO ONE (18:00)
[2019-07-21 18:09] VITALS: BP 123/68
--- NOTE | 2019-07-21 18:40 | PDOC DISCHARGE SUMMARY ---
Impression - Admit/DC Date/PCP Admission Date/Primary Care Provider: 07/19/19 19:36 KARLI SHELBY MD Discharge Date: 07/21/19 - Discharge Diagnosis (1) Status post Whipple Is this a current diagnosis for this admission?: Yes (2) Acute nontraumatic kidney injury Is this a current diagnosis for this admission?: Yes (3) Dehydration Is this a current diagnosis for this admission?: Yes (4) Hypokalemia Is this a current diagnosis for this admission?: Yes (5) Hyponatremia Is this a current diagnosis for this admission?: Yes (6) Hypovolemia associated with vomiting Is this a current diagnosis for this admission?: Yes - Assessment Summary: The patient will be admitted to observation status on the medical floor where she will receive usual supportive and symptomatic cares. She will receive IV hydration with sodium and potassium repletion utilizing D5 normal saline with 20 mEq of potassium chloride per liter. She will use Nubain 5 to 10 mg IV every 3 hours as needed for pain control. She will receive Reglan 10 mg IV before meals and at bedtime to control nausea, sucralfate meals and at bedtime, famotidine before meals and at bedtime and Pancrease 10 with meals. She will be continued on her usual medications for her chronic medical problems when appropriate. 07/20/2019 Patient sitting up in bed speaking in full sentences eating breakfast and no co mplaints. 298 1 pulse 86 blood pressure 116/64 O2 sat 96% on room air [place] white count was 17,400 today it is 10.8 sodium was 128 today is 132 Calcium was 3.2 it is now 3.3 admission chest x-ray was negative BUN on admission was 25 today at 17 creatinine was 1.38 now it is 0.81 GFR was 38 and is now greater than 60 and lactic acid was 1.5 We will continue IV fluids continue K riders Anticipate discharge home tomorrow Patient had a Whipple procedure about 8 weeks ago done in [facility]. Since she has had some episodic vomiting which would account for her lab values 07/21/2019 Patient's sodium was 131 potassium was down to 2.7, patient received several K riders as well as potassium p.o., and this afternoon her potassium is up to 3.2 A prescription for K-Dur 20 mEq ER 1 tablet twice daily was written. I feel like this will keep her potassium probably about 3.5-3.8 Today's BUN is 6 creatinine is 0.66 GFR is greater than 60 glucose is 102 Calcium is 8.7 magnesium 1.8 Patient is medically stable for discharge.. It would be best for patient to have a local provider who could assist the surgeon, with routine labs. Would honestly feel better if she could have her blood checked in 2 to 3 days instead of 5 days from now. - Additional Information Resuscitation Status: Full Code Discharge Diet: Other (Comments) - High in potassium Discharge Activity: Activity As Tolerated Referrals: KARLI SHELBY MD [Primary Care Provider] - Follow up as needed Prescriptions: Potassium Chloride [K-Tab ER] 20 meq PO Q12 30 Days #60 Home Medications: Anastrozole [Arimidex 1 mg Tablet] 1 mg PO QPM 07/19/19 Calcium Carbonate [Calcium] 1,200 mg PO DAILY 07/19/19 Eszopiclone [Lunesta] 3 mg PO QHS 07/19/19 Multivit/Iron/Folic Acid/Hb179 [Womens Multivit Hi Potency Tab] 1 each PO DAILY 07/19/19 Olmesartan/Hydrochlorothiazide [Olmesartan-Hctz 40-12.5 mg Tab] 1 each PO QAM 07/19/19 Omeprazole 20 mg PO QPM 07/19/19 Potassium Chloride [K-Tab ER] 20 meq PO Q12 30 Days #60 07/21/19 History of Present Illiness History of Present Illness: KATELYN NICKERSON is a 64 year old female Physical Exam Vital Signs: Temp Pulse Resp BP Pulse Ox 98.0 F 84 14 123/69 98 07/21/19 16:07 07/21/19 16:07 07/21/19 16:07 07/21/19 16:07 07/21/19 16:07 Intake & Output 07/20/19 07/21/19 07/22/19 06:59 06:59 06:59 Intake Total 3360 1790 1325 Output Total 350 350 150 Balance 3010 1440 1175 Weight 79.3 kg Results Laboratory Results: WBC 9.4 10^3/uL (4.0-10.5) 07/21/19 07:12 RBC 2.92 10^6/uL (3.72-5.28) L 07/21/19 07:12 Hgb 8.4 g/dL (12.0-15.5) L 07/21/19 07:12 Hct 24.3 % (36.0-47.0) L 07/21/19 07:12 MCV 83 fl (80-97) 07/21/19 07:12 MCH 28.6 pg (27.0-33.4) 07/21/19 07:12 MCHC 34.3 g/dL (32.0-36.0) 07/21/19 07:12 RDW 14.9 % (11.5-14.0) H 07/21/19 07:12 Plt Count 323 10^3/uL (150-450) 07/21/19 07:12 Lymph % (Auto) 9.9 % (13-45) L 07/21/19 07:12 Long % (Auto) 10.0 % (3-13) 07/21/19 07:12 Eos % (Auto) 2.3 % (0-6) 07/21/19 07:12 Baso % (Auto) 1.1 % (0-2) 07/21/19 07:12 Absolute Neuts (auto) 7.2 10^3/uL (1.7-8.2) 07/21/19 07:12 Absolute Lymphs (auto) 0.9 10^3/uL (0.5-4.7) 07/21/19 07:12 Absolute Monos (auto) 0.9 10^3/uL (0.1-1.4) 07/21/19 07:12 Absolute Eos (auto) 0.2 10^3/uL (0.0-0.6) 07/21/19 07:12 Absolute Basos (auto) 0.1 10^3/uL (0.0-0.2) 07/21/19 07:12 Seg Neutrophils % 76.7 % (42-78) 07/21/19 07:12 PT 13.7 SEC (11.4-15.4) 07/19/19 15:30 INR 1.05 07/19/19 15:30 VBG pH 7.55 (7.30-7.42) H 07/19/19 15:51 VBG pCO2 31.1 mmHg (35-63) L 07/19/19 15:51 VBG HCO3 26.8 mmol/L (20-32) 07/19/19 15:51 VBG Base Excess 4.9 mmol/L 07/19/19 15:51 Sodium 130.3 mmol/L (137-145) L 07/21/19 16:10 Potassium 3.2 mmol/L (3.6-5.0) L 07/21/19 16:10 Chloride 94 mmol/L (98-107) L 07/21/19 16:10 Carbon Dioxide 27 mmol/L (22-30) 07/21/19 16:10 Anion Gap 9 (5-19) 07/21/19 16:10 BUN 6 mg/dL (7-20) L 07/21/19 16:10 Creatinine 0.66 mg/dL (0.52-1.25) 07/21/19 16:10 Est GFR ( Amer) > 60 (>60) 07/21/19 16:10 Est GFR (MDRD) Non-Af > 60 (>60) 07/21/19 16:10 Glucose 102 mg/dL (75-110) 07/21/19 16:10 POC Glucose 128 mg/dL (70-110) H 07/19/19 15:36 Lactic Acid (Sepsis) 1.5 mmol/L (0.7-2.1) 07/19/19 15:51 Calcium 8.7 mg/dL (8.4-10.2) 07/21/19 16:10 Magnesium 1.8 mg/dL (1.6-2.3) 07/20/19 06:04 Total Bilirubin 0.8 mg/dL (0.2-1.3) 07/19/19 15:30 Direct Bilirubin 0.4 mg/dL (0.0-0.4) 07/19/19 15:30 Neonat Total Bilirubin Not Reportable 07/19/19 15:30 Neonat Direct Bilirubin Not Reportable 07/19/19 15:30 Neonat Indirect Bili Not Reportable 07/19/19 15:30 AST 23 U/L (14-36) 07/19/19 15:30 ALT 16 U/L (<35) 07/19/19 15:30 Alkaline Phosphatase 177 U/L (38-126) H 07/19/19 15:30 Troponin I < 0.012 ng/mL 07/19/19 15:30 Total Protein 6.8 g/dL (6.3-8.2) 07/19/19 15:30 Albumin 3.5 g/dL (3.5-5.0) 07/19/19 15:30 Lipase 325.3 U/L (23-300) H 07/19/19 15:30 TSH 3.76 uIU/mL (0.47-4.68) 07/20/19 06:04 Urine Color YELLOW 07/19/19 21:10 Urine Appearance SLIGHTLY-CLOUDY 07/19/19 21:10 Urine pH 6.0 (5.0-9.0) 07/19/19 21:10 Ur Specific [place] 1.039 07/19/19 21:10 Urine Protein NEGATIVE mg/dL (NEGATIVE) 07/19/19 21:10 Urine Glucose (UA) 50 mg/dL (NEGATIVE) H 07/19/19 21:10 Urine Ketones 20 mg/dL (NEGATIVE) H 07/19/19 21:10 Urine Blood NEGATIVE (NEGATIVE) 07/19/19 21:10 Urine Nitrite NEGATIVE (NEGATIVE) 07/19/19 21:10 Urine Bilirubin NEGATIVE (NEGATIVE) 07/19/19 21:10 Urine Urobilinogen NEGATIVE mg/dL (<2.0) 07/19/19 21:10 Ur Leukocyte Esterase SMALL (NEGATIVE) H 07/19/19 21:10 Urine WBC (Auto) 11 /HPF 07/19/19 21:10 Urine RBC (Auto) 1 /HPF 07/19/19 21:10 Urine Mucus (Auto) RARE /LPF 07/19/19 21:10 Urine Ascorbic Acid NEGATIVE (NEGATIVE) 07/19/19 21:10 07/19/19 15:30 Troponin I < 0.012 Impressions: Chest X-Ray 07/19/19 15:15 IMPRESSION: NO ACUTE RADIOGRAPHIC FINDING IN THE CHEST. Stroke Is this a Stroke Patient?: No Acute Heart Failure - Is this a Heart Failure Patient?: No
== END 2019-07-21 18:44 | disposition home or self-care (01) ==
LOC: ER 14:58 → EH 19:36 → 4S 21:20
PROVIDERS: ADMIT Emergency Medicine; ATTEND Emergency Medicine
DX: N17.9 Acute kidney failure, unspecified (principal); E86.0 Dehydration; E87.1 Hypo-osmolality and hyponatremia; E87.6 Hypokalemia; E86.1 Hypovolemia; I10 Essential (primary) hypertension; R06.00 Dyspnea, unspecified; Z90.49 Acquired absence of other specified parts of digestive tract; E78.5 Hyperlipidemia, unspecified; D63.1 Anemia in chronic kidney disease; R00.0 Tachycardia, unspecified; I95.9 Hypotension, unspecified; Z79.899 Other long term (current) drug therapy; Z85.3 Personal history of malignant neoplasm of breast; Z87.19 Personal history of other diseases of the digestive system; Z92.3 Personal history of irradiation; Z87.891 Personal history of nicotine dependence; Z86.2 Personal history of diseases of the blood and blood-forming organs and certain disorders involving the immune mechanism
CPT/HCPCS: 93005; 99291; 96361; 96365; 96366; 96367; 36415 ×3; 87040; 82962; 83690; 83735 ×2; 84443; 85025 ×2; 85027; 85610; 80048 ×2; 80053; 81001; 84484; 82803; 83605; 71045; 93010; G0378 ×4; J1644 ×2; A9270 ×13; J7121 ×2; J2765 ×3; J3475; J3490; J3480 ×2; J7030; J7120

== ENCOUNTER → 2019-08-27 | Outpatient (CLI) | payer MEDICARE, BC ==
--- NOTE | 2019-08-27 12:09 | WOMENS IMAGING REPORT ---
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 EXAM PARAMETERS: Standard craniocaudal and mediolateral oblique views of each breast recorded using digital acquisition and breast tomosynthesis. Additional true lateral images of the left breast and exaggerated CC images of the right breast acqui red with tomosynthesis. Read with the assistance of CAD: .[employer] Admin Version 9.2 LIMITATIONS: None. FINDINGS: RIGHT BREAST MASSES: New mass in the deep medial breast. Possible stippled calcifications on tomosynthesis images . Small circumscribed mass in the anteromedial breast. CALCIFICATIONS: No new or suspicious calcifications. ARCHITECTURAL DISTORTION: None. ASYMMETRY: None noted. OTHER: No other significant finding. LEFT BREAST MASSES: No suspicious masses. CALCIFICATIONS: Stable dystrophic calcifications. ARCHITECTURAL DISTORTION: Stable surgical changes. ASYMMETRY: None noted. OTHER: No other significant findings. BREAST ULTRASOUND: TECHNIQUE: Static and dynamic grayscale images acquired of the right breast in the specific areas of clinical/mammographic concern. Selected color Doppler images recorded. ELASTOGRAPHY PERFORMED: No. LIMITATIONS: None. FINDINGS: MASS: In the 1-2 o'clock location there is a solid mass measuring 0.9 x 1.7 cm. Distal shadowing. I n the 9 o'clock location near the areola there is an irregular shadowing density which corresponds wi th dystrophic calcifications on mammography. In the 3 o'clock location near the areola there is a ci rcumscribed small cyst, measuring 5 mm. ELASTOGRAPHY CHARACTERISTICS: Not applicable. OTHER: No other significant finding. IMPRESSION: New mass in the deep medial right breast. This is in the general region of an oil cyst on the older mammograms. This could be due to progressive fat necrosis. However, cannot exclude mal ignant process and biopsy is recommended. There is also a new small mass in the anterior right breas t which is a simple cyst on ultrasound. Stable mammographic appearance of the left breast. Stable surgical changes with architectural distor tion and dystrophic calcifications. BREAST DENSITY: a. The breasts are almost entirely fatty. BIRAD: ASSESSMENT: 4 Suspicious. Biopsy should be performed in the absence of clinical contra-indic ation. RECOMMENDATION: RECOMMENDED FOLLOW UP: Birads 4: Biopsy should be performed in the absence of clinic al contraindication. SPECIFIC INTERVENTION/IMAGING/CONSULTATION RECOMMENDED:The suspicious finding(s) amenable to US guide d core/vacuum assisted biopsy. COMMUNICATION:The imaging findings were not discussed with the patient. Her referring provider has be en notified of the findings. COMMENT: The patient has been notified of the results by letter per [place] requirements. Additional no tification policies are in place for contacting patient with suspicious or incomplete findings. Quality ID #225: The [employer] recommends an annual screening mammogram for women aged 40 years or over. This facility utilizes a reminder system to ensure that all patients receive reminder letters, and/or direct phone calls for appointments. This includes reminders for routine scr eening mammograms, diagnostic mammograms, or other Breast Imaging Interventions when appropriate. Th is patient will be placed in the appropriate reminder system. TECHNICAL DOCUMENTATION: FINDING NUMBER: (1) ASSESSMENT: (1) JOB ID: [id number] [employer]- All Rights Reserved Reading location - IP/workstation name: [email or web address]
== END ==
LOC: WI 10:22
PROVIDERS: ATTEND Internal Medicine Hematology & Oncology
DX: C50.312 Malignant neoplasm of lower-inner quadrant of left female breast (principal); Z85.3 Personal history of malignant neoplasm of breast
CPT/HCPCS: 76642; 77066; G0279; 77062

== ENCOUNTER → 2019-09-05 | Day surgery (SDC) | payer MEDICARE, BC ==
[~2019-09-05] MED LIST: LIDOCAINE 1% INJ-PF (10 MG/ML) 30 ML SDV ONE
== END ==
LOC: WI 12:50
PROVIDERS: ATTEND Internal Medicine Hematology & Oncology
DX: N63.10 Unspecified lump in the right breast, unspecified quadrant (principal); C50.312 Malignant neoplasm of lower-inner quadrant of left female breast; Z85.3 Personal history of malignant neoplasm of breast
CPT/HCPCS: 88342 ×2; 88305 ×2; 88312 ×2; 19083; 77065; J3490

== ENCOUNTER → 2019-09-06 | Outpatient (CLI) | payer MEDICARE, BC ==
--- NOTE | 2019-09-06 13:18 | RADIOLOGY REPORT (SQ) ---
EXAM DESCRIPTION: NM WHOLE BODY BONE SCAN COMPLETED DATE/TIME: 09/06/2019 12:57 pm REASON FOR STUDY: OTHER SPECIFIED ABNORMAL FINDINGS OF BLOOD CHEM;HX R79.89 OTHER SPECIFIED ABNORMA L FINDINGS OF BLOOD CHEMISTRY Z85.3 PERSONAL HISTORY OF MALIGNANT NEOPLASM OF BREAST N63.10 UNSPECI FIED LUMP IN THE RIGHT BREAST, UNSPECIFIED PRISCILLA COMPARISON: CT abdomen 03/26/2019 RADIONUCLIDE AND DOSE: 20 millicuries Tc99m HDP. The route of agent administration: Intravenous. ADDITIONAL DRUGS AND DOSES: None. TECHNIQUE: Routine delayed images at 3 hours post radionuclide injection acquired of the bony skelet on including anterior and posterior whole-body projections and additional focused images as needed. LIMITATIONS: None. FINDINGS: BONES: Normal visualization without areas of photopenia or increased bony uptake of radiop harmaceutical. KIDNEYS: Symmetric excretion without obstruction. OTHER: No other significant finding. IMPRESSION: NORMAL BONE SCAN. COMMENT: Quality measure 147: Current bone scan is compared with any available plain radiographs, p rior bone scans, and CT/MRI. TECHNICAL DOCUMENTATION: JOB ID: [id number] [employer]- All Rights Reserved Reading location - IP/workstation name: [email or web address]
== END ==
LOC: WI 08:20
PROVIDERS: ATTEND Family Medicine
DX: N63.10 Unspecified lump in the right breast, unspecified quadrant (principal); R79.89 Other specified abnormal findings of blood chemistry; Z08 Encounter for follow-up examination after completed treatment for malignant neoplasm; Z85.3 Personal history of malignant neoplasm of breast
CPT/HCPCS: 78306; A9561; Q9969

== ENCOUNTER → 2020-01-20 | Outpatient (CLI) | payer MEDICARE, BC ==
--- NOTE | 2020-01-20 11:46 | RADIOLOGY REPORT (SQ) ---
EXAM DESCRIPTION: U/S ABDOMEN COMPLETE W/O DOP IMAGES COMPLETED DATE/TIME: 01/20/2020 9:46 am REASON FOR STUDY: (R94.5)ABNORMAL RESULTS OF LIVER FUNCTION STUDIES R94.5 ABNORMAL RESULTS OF LIVER FUNCTION STUDIES COMPARISON: 03/20/2019 TECHNIQUE: Dynamic and static grayscale images acquired of the abdomen and recorded on PACS. Additio nal selected color Doppler and spectral images recorded. Note: Study does not meet criteria for complete doppler/duplex scan LIMITATIONS: None. FINDINGS: PANCREAS: The pancreas is suboptimally visualized due to overlying bowel gas. LIVER: The liver measures 14.1 cm in length. Hepatic cysts are again visualized. LIVER VASCULATURE: Normal directional flow of the main portal vein and hepatic veins. GALLBLADDER: According to the patient, prior cholecystectomy since the prior examination. ULTRASOUND-DETECTED BRENNAN'S SIGN: Negative. INTRAHEPATIC DUCTS AND COMMON DUCT: CBD 3.8 mm in diameter, normal. The intrahepatic ducts normal ca liber. No filling defects. INFERIOR VENA CAVA: Normal flow. AORTA: No aneurysm. RIGHT KIDNEY: The right kidney measures 8.5 cm in length, normal size. Normal echogenicity. No farooq id or suspicious masses. No hydronephrosis. No calcifications. LEFT KIDNEY: The left kidney measures 10.4 cm in length, normal size. Normal echogenicity. No yue d or suspicious masses. No hydronephrosis. No calcifications. SPLEEN: The spleen measures 11.5 cm in length, normal size. No solid masses. PERITONEAL AND PLEURAL SPACES: No ascites or effusions. OTHER: No other significant finding. IMPRESSION: 1. The pancreas is suboptimally visualized due to overlying bowel gas. 2. Hepatic cyst as on the prior examination dated 04/07/2019. 3. The gallbladder is not visualized on the current study. The patient states interval cholecystecto my. TECHNICAL DOCUMENTATION: JOB ID: [id number] 2010 [employer]- All Rights Reserved Reading location - IP/workstation name: [email or web address]
== END ==
LOC: RAD 09:13
PROVIDERS: ATTEND Internal Medicine Gastroenterology
DX: K76.89 Other specified diseases of liver (principal)
CPT/HCPCS: 76700

== ENCOUNTER → 2020-08-31 | Outpatient (CLI) | payer MEDICARE, BC ==
--- NOTE | 2020-08-31 10:13 | WOMENS IMAGING REPORT ---
EXAM DESCRIPTION: BONE DENSITY HIP/SPINE IMAGES COMPLETED DATE/TIME: 08/31/2020 8:39 am REASON FOR STUDY: Z78.0 C50.312 MALIG NEOPLASM OF LOWER-INNER QUADRANT OF LEFT FEMAL Z78.0 ASYMPTO MATIC MENOPAUSAL STATE COMPARISON: 05/21/2018. TECHNIQUE: Dual-Energy X-ray Absorptiometry (DEXA) of the AP Spine and Hip. LIMITATIONS: None. FINDINGS: LUMBAR SPINE: The bone mineral density (BMD) measured from L1-L4 in the AP projection correlates with a T-score of -2, which is osteopenia as defined by the World Health Organization. BMD Change vs Baseline: 23.7% decrease. HIP: The bone mineral density (BMD) measured in the left femoral neck correlates with a T-score of -2.1, w hich is osteopenia as defined by the World Health Organization. BMD Change vs Baseline: 15.4% decrease. 10 year Fracture Risk Assessment: Major Osteoporotic Fracture: 11% without history of prior fracture and 17% with history of prior fra cture. Hip Fracture: 1.7% without history of prior fracture and 2.8% with history of prior fracture. IMPRESSION: 1. LUMBAR SPINE WHO CLASSIFICATION: OSTEOPENIA. 2. HIP WHO CLASSIFICATION: OSTEOPENIA. OVERALL ASSESSMENT: WHO CLASSIFICATION: OSTEOPENIA. COMMENT: The World Health Organization defines low BMD as follows: T-score: Normal: At or above -1.0 Osteopenia: Between -1.0 and -2.5 Osteoporosis: At or below -2.5 without fractures Established osteoporosis: At or below -2.5 with fractures In general, you may wish to consider: Diagnosis Treatment Follow-up DEXA Normal BMD Prevention 2-3 years Osteopenia Prevention/Therapy 1-2 years Osteoporosis Therapy Yearly TECHNICAL DOCUMENTATION: JOB ID: [id number] 2010 [employer]- All Rights Reserved Reading location - IP/workstation name: [email or web address]
--- NOTE | 2020-08-31 10:15 | WOMENS IMAGING REPORT ---
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 EXAM PARAMETERS: Standard craniocaudal and mediolateral oblique views of each breast recorded using digital acquisition and breast tomosynthesis. Left true lateral view. Read with the assistance of CAD: .[facility] - [employer] Database Version 9.2 LIMITATIONS: None. FINDINGS: RIGHT BREAST MASSES: No suspicious masses. CALCIFICATIONS: Chronic coarse benign-appearing calcifications. ARCHITECTURAL DISTORTION: None. ASYMMETRY: None noted. OTHER: No other significant findings. LEFT BREAST MASSES: No suspicious masses. CALCIFICATIONS: Extensive dystrophic calcifications with a stable pattern. Postoperative distortion and left axillary clips. ARCHITECTURAL DISTORTION: As above. ASYMMETRY: None noted. OTHER: No other significant finding. IMPRESSION: Chronic breast changes including post treatment findings in the left breast. Stable exa m. BREAST DENSITY: b. There are scattered areas of fibroglandular density. BIRAD: ASSESSMENT: 2 Benign findings. RECOMMENDATION: RECOMMENDED FOLLOW UP: Yearly mammography. SPECIFIC INTERVENTION/IMAGING/CONSULTATION RECOMMENDED:No additional intervention/ imaging/consultati on needed at this time. COMMUNICATION:No significant abnormalities to discuss with the patient today. COMMENT: The patient has been notified of the results by letter per MQ[place] requirements. Additional no tification policies are in place for contacting patient with suspicious or incomplete findings. Quality ID #225: The [employer] recommends an annual screening mammogram for women aged 40 years or over. This facility utilizes a reminder system to ensure that all patients receive reminder letters, and/or direct phone calls for appointments. This includes reminders for routine scr eening mammograms, diagnostic mammograms, or other Breast Imaging Interventions when appropriate. Th is patient will be placed in the appropriate reminder system. TECHNICAL DOCUMENTATION: FINDING NUMBER: (1) ASSESSMENT: (1) JOB ID: [id number] 2010 [employer]- All Rights Reserved Reading location - IP/workstation name: [email or web address]
== END ==
LOC: WI 08:24
PROVIDERS: ATTEND Internal Medicine Hematology & Oncology
DX: C50.312 Malignant neoplasm of lower-inner quadrant of left female breast (principal); Z78.0 Asymptomatic menopausal state; M85.88 Other specified disorders of bone density and structure, other site
CPT/HCPCS: 77066; 77080; G0279; 77062